=== PATIENT | male | born 1955 | race Caucasian/White ===

== ENCOUNTER 2016-11-14 13:27 | Inpatient (IN) | payer MEDICARE, MEDICAID ==
[~2016-11-14] VITALS: Ht 177.8 cm; Wt 58.7 kg
[2016-11-14] VITALS (10 sets, daily range): BP systolic 139–173; BP diastolic 65–82; PULSE 82–102; RESP 16–25; TEMP 98.8; O2SAT 90–98
[~2016-11-14 13:27] MED LIST: ALPR1 PO; DOCU1CAP39 PO; ECOT81TA2 PO; GABA100C4 PO; OXYC5 PO; PANT40IN3 PO
[2016-11-14] MEDS ORDERED: SODIUM CHLORIDE 0.9% FLUSH 10 ML FLUSH IVF PRN (14:30)
[2016-11-14] MEDS: RESP: ALBUTEROL 2.5 MG/3 ML NEB (SCH) INH ×3 (14:30→17:42)
[2016-11-14] MEDS ORDERED: methylPREDNISolone SOD SUCC 125 MG/2 ML VIAL IVP ONE (14:30)
[2016-11-14 14:52] LABS: BASOPHIL # 0.1 TH/MM3 (0-0.2); BASOPHIL % 0.6 % (0.0-2.0); EOSINOPHIL # 0.3 TH/MM3 (0-0.4); EOSINOPHIL % 2.7 % (0.0-4.0); HEMATOCRIT 39.4 % (39.0-51.0); LYMPHOCYTE # 1.4 TH/MM3 (1.0-4.8); MEAN CELL VOLUME 90.6 FL (80.0-100.0); MEAN CORPUSCULAR HEMOGLOBIN 30.6 PG (27.0-34.0); MEAN CORPUSCULAR HGB CONC 33.8 % (32.0-36.0); MONO % 17.7 % (0.0-8.0); PLATELET COUNT 152 TH/MM3 (150-450); RED BLOOD COUNT 4.35 MIL/MM3 (4.50-5.90); RED CELL DISTRIBUTION WIDTH 13.6 % (11.6-17.2); WHITE BLOOD COUNT 9.3 TH/MM3 (4.0-11.0)
[2016-11-14 15:00] LABS: HEMO FLAGS AUTO DIFF
--- NOTE | 2016-11-14 15:03 | RADRPT ---
EXAM DATE/TIME: 11/14/2016 14:36 [place] COMPARISON: CHEST SINGLE AP, January 04, 2016, 0:56. INDICATIONS : Short of breath for 3-4 days. MEDICAL HISTORY : Chronic obstructive pulmonary disease. Myocardial infarction. Congestive heart failure. Thyroid disea se. CVA. Seizures. Coronary artery disease. Chronic ischemic heart disease. Hypertension. SURGICAL HISTORY : Unobtainable. ENCOUNTER: Initial ACUITY: 4 - 6 days PAIN SCORE: 0/10 LOCATION: Bilateral chest FINDINGS: A single view of the chest demonstrates the lungs to be symmetrically aerated without evidence of mas s, infiltrate or effusion. The cardiomediastinal contours are unremarkable. Osseous structures are intact. CONCLUSION: No acute disease. Cortez Frazier MD FACR on November 14, 2016 at 15:01 Board Certified Radiologist. This report was verified electronically.
[2016-11-14 15:15] LABS: ANION GAP 6 MEQ/L (5-15); BLOOD UREA NITROGEN 5 MG/DL (7-18); CHLORIDE 105 MEQ/L (98-107); GLOMERULAR FILTRATION RATE 99 ML/MIN (>89); SODIUM (NA) 139 MEQ/L (136-145)
[2016-11-14 15:36] LABS: CREATINE KINASE 59 U/L (39-308); POTASSIUM 4.2 MEQ/L (3.5-5.1)
[2016-11-14 15:50] LABS: PLATELET MORPHOLOGY ENLARGED (NORMAL); SCAN/DIFF AUTO DIFF CONFIRMED
--- NOTE | 2016-11-14 16:00 | PD ---
HPI Chief Complaint: Respiratory Symptoms Time Seen by Provider: 15:57 Travel History International Travel<30 days: No Contact w/Intl Traveler<30days: No Traveled to known affect area: No History of Present Illness HPI 60-year-old male that presents to the ED for evaluation of chest pain with cough. Per patient she's had this for about 4 days. Per patient he is living on a house where per patient the lumbar acute care really low. Per patient he believes is related to this. He has a chronic history of psychiatric illness he somewhat of a poor historian. He does have a history of COPD and states that he uses inhalers at home. States that this seems to help somewhat his discomfort. He denies any chest pain or shortness of breath at this moment. He does complain that the symptoms only come with a cough. He states he has not seen anybody for this. He uses no oxygen at home. He denies any fevers chills or sweats. Multiple allergies to medication. He denies any history of heart disease. PFSH Past Medical History Anemia: Yes Anxiety: Yes Depression: Yes (AFTER ) Cardiovascular Problems: Yes Congestive Heart Failure: Yes COPD: Yes Cerebrovascular Accident: Yes (LLE WEAKNESS) Coronary Artery Disease: Yes (CHRONIC ISCHEMIC HEART DISEASE) Diminished Hearing: No Endocrine: Yes Genitourinary: Yes Hypertension: Yes Immune Disorder: No Musculoskeletal: Yes (MUSCLE WEAKNESS) Psychiatric: Yes Reproductive: No Respiratory: Yes Myocardial Infarction: Yes Seizures: Yes Thyroid Disease: No (HYPOTHYROID) Social History Alcohol Use: Yes (LAST TIME 8 MOS.AGO) Tobacco Use: Yes (PK./DAY) Substance Use: No Allergies-Medications (Allergen,Severity, Reaction): Coded Allergies: ampicillin (Unverified Allergy, Severe, 11/13/16) chlorpromazine (Unverified Allergy, Severe, 11/13/16) doxycycline (Unverified Allergy, Severe, 11/13/16) minocycline (Unverified Allergy, Severe, 11/13/16) penicillin G (Unverified Allergy, Severe, 11/13/16) tigecycline (Unverified Allergy, Severe, 11/13/16) Reported Meds & Prescriptions Reported Meds & Active Scripts Active Reported Proair Hfa 8.5 GM Inh (Albuterol Sulfate) 90 Mcg/Act Aer 2 Puff INH QID PRN 108 mcg/actuation Atrovent HFA 12.9 GM Inh (Ipratropium [place]) 17 Mcg/Act Aer 2 Puff INH QID Ferrous Sulfate 325 Mg (65 Mg Iron) Tablet 325 Mg PO DAILY Baclofen 10 Mg Tab 10 Mg PO TID PRN Folic Acid 800 Mcg Tab 1,000 Mcg PO DAILY Diltiazem (Diltiazem HCl) 30 Mg Tab 30 Mg PO DAILY Levothyroxine (Levothyroxine Sodium) 50 Mcg Tab 50 Mcg PO DAILY Risperidone 0.5 Mg Tab 0.5 Mg PO HS Gabapentin 100 Mg Cap 100 Mg PO TID Alprazolam 1 Mg Tab 1 Mg PO TID PRN Tramadol (Tramadol HCl) 50 Mg Tab 50 Mg PO Q4H PRN Pantoprazole (Pantoprazole Sodium) 40 Mg Tab 40 Mg PO DAILY Review of Systems ROS Limitations: Poor Historian Except as stated in HPI: all other systems reviewed are Neg Physical Exam Exam Limitations: Poor Historian Narrative GENERAL: Well-nourished, well-developed patient in no apparent distress. SKIN: Warm and dry. HEAD: Atraumatic. Normocephalic. EYES: Pupils equal and round reactive to light and accommodation. No scleral icterus. No injection or drainage. ENT: No nasal bleeding or discharge. Mucous membranes pink and moist. TMs are clear with no sign of infection or perforation. No mastoid tenderness. Ear canals are intact bilaterally. No lymphadenopathy. Nostril mucosa is red and moist with clear mucus noted. No sinus tenderness to palpation noted. Tonsils are not enlarged or swollen. No ulvua Deviation. Tongue is midline. NECK: Trachea midline. No JVD. No meningeal signs noted CARDIOVASCULAR: Regular rate and rhythm. RESPIRATORY: No accessory muscle use. Wheezings heard in the lower lung wolfe. Breath sounds equal bilaterally. GASTROINTESTINAL: Abdomen soft, non-tender, nondistended. Hepatic and splenic margins not palpable. MUSCULOSKELETAL: Extremities without clubbing, cyanosis, or edema. No obvious deformities. Full range of motion of the upper and lower extremities bilaterally. 2+ pulses bilaterally. NEUROLOGICAL: Awake and alert. No obvious cranial nerve deficits. Motor grossly within normal limits. Five out of 5 muscle strength in the arms and legs. Normal speech. PSYCHIATRIC: Appropriate mood and affect; insight and judgment normal. Data Data Last Documented VS Vital Signs Date Time Temp Pulse Resp B/P Pulse Ox O2 Delivery O2 Flow Rate FiO2 8/16/17 17:42 96 Nasal Cannula 2.00 11/14/16 17:08 85 22 173/76 11/14/16 13:30 98.8 Orders Electrocardiogram (11/14/16 14:22) Basic Metabolic Panel (Bmp) (11/14/16 14:22) Complete Blood Count With Diff (11/14/16 14:22) Chest, Single Ap (11/14/16 14:22) Ecg Monitoring (11/14/16 14:22) Iv Access Insert/Monitor (11/14/16 14:22) Oximetry (11/14/16 14:22) Oxygen Administration (11/14/16 14:22) Methylprednisolone So Succ Inj (Solumedr (11/14/16 14:30) Albuterol Neb (Albuterol Neb) (11/14/16 14:30) Sodium Chloride 0.9% Flush (Ns Flush) (11/14/16 14:30) Troponin I (11/14/16 14:22) Ckmb (Isoenzyme) Profile (11/14/16 14:22) Azithromycin Inj (Zithromax Inj) (11/14/16 16:30) Albuterol Neb (Albuterol Neb) (11/14/16 16:30) Admit Order (Ed Use Only) (11/14/16 18:01) Labs Laboratory Tests Test 11/14/16 14:25 White Blood Count 9.3 TH/MM3 Red Blood Count 4.35 MIL/MM3 Hemoglobin 13.3 GM/DL Hematocrit 39.4 % Mean Corpuscular Volume 90.6 FL Mean Corpuscular Hemoglobin 30.6 PG Mean Corpuscular Hemoglobin 33.8 % Concent Red Cell Distribution Width 13.6 % Platelet Count 152 TH/MM3 Mean Platelet Volume 13.7 FL Neutrophils (%) (Auto) 64.0 % Lymphocytes (%) (Auto) 15.0 % Monocytes (%) (Auto) 17.7 % Eosinophils (%) (Auto) 2.7 % Basophils (%) (Auto) 0.6 % Neutrophils # (Auto) 6.0 TH/MM3 Lymphocytes # (Auto) 1.4 TH/MM3 Monocytes # (Auto) 1.6 TH/MM3 Eosinophils # (Auto) 0.3 TH/MM3 Basophils # (Auto) 0.1 TH/MM3 CBC Comment AUTO DIFF Differential Comment AUTO DIFF CONFIRMED Platelet Morphology Comment ENLARGED Sodium Level 139 MEQ/L Potassium Level 4.2 MEQ/L Chloride Level 105 MEQ/L Carbon Dioxide Level 28.0 MEQ/L Anion Gap 6 MEQ/L Blood Urea Nitrogen 5 MG/DL Creatinine 0.79 MG/DL Estimat Glomerular Filtration 99 ML/MIN Rate Random Glucose 125 MG/DL Calcium Level 9.2 MG/DL Total Creatine Kinase 59 U/L Troponin I LESS THAN 0.02 NG/ML MDM Medical Decision Making Medical Screen Exam Complete: Yes Emergency Medical Condition: Yes Medical Record Reviewed: Yes Interpretation(s) Last Impressions Chest X-Ray 11/14/16 1422 Signed Impressions: Service Date/Time: Monday, November 14, 2016 14:36 - CONCLUSION: No acute disease. Cortez Frazier MD FACR CBC & BMP Diagram 11/14/16 14:25 troponin and CKMB negative EKG shows sinus rhythm with no sign of acute ischemia or arrythmia. Read by me and attending. Differential Diagnosis Chest pain versus a typical chest pain versus COPD exacerbation versus pneumonia versus bronchitis Narrative Course 61-year-old male that presents to the ED for evaluation of chest pain and shortness of breath. Patient was properly examined and was found to have signs and symptoms consistent appears to be likely COPD. Labs and imaging were ordered. Labs and imaging were essentially unremarkable. I do not believe this cardiac as pain is reproducible with cough. He does continue to smoke. Patient's O2 sat is low here. He does not use oxygen at home. Patient was given breathing treatments with some relief but his O2 still low. I had the patient ambulate and he still felt short of breath. At this time I do recommend admission for COPD exacerbation. Case discussed in my attending who agrees with this plan. Patient was admitted to Dr. Parks who agrees to admission. Diagnosis Primary Impression: COPD with exacerbation Admitting Information Admitting Physician Requests: Observation Ernesto Perez Nov 14, 2016 16:00
[2016-11-14] MEDS ORDERED: FERR325T8 PO (16:13)
[2016-11-14] MEDS ORDERED: TRAM50TA PO (16:13)
[2016-11-14] MEDS ORDERED: GABA100C4 PO (16:13)
[2016-11-14] MEDS ORDERED: DILT30TA PO (16:13)
[2016-11-14] MEDS ORDERED: ALBUAER3 INH (16:13)
[2016-11-14] MEDS ORDERED: PANT40TA3 PO (16:13)
[2016-11-14] MEDS ORDERED: IPRA17I INH (16:13)
[2016-11-14] MEDS ORDERED: LEVO50TA4 PO (16:13)
[2016-11-14] MEDS ORDERED: FOLI800T PO (16:13)
[2016-11-14] MEDS ORDERED: BACL10TA PO (16:13)
[2016-11-14] MEDS ORDERED: RISP0.5T2 PO (16:13)
[2016-11-14] MEDS ORDERED: ALPR1TAB3 PO (16:13)
[2016-11-14] MEDS ORDERED: AZITHROMYCIN INJ 500 MG in SODIUM CHLOR 0.9% 250 ML INJ 250 ML IV ONE (16:30)
[2016-11-14] MEDS ORDERED: SODIUM CHLORIDE 0.9% FLUSH 10 ML FLUSH IV FLUSH PRN ×2 (19:30)
[2016-11-14] MEDS ORDERED: ONDANSETRON HCL 4 MG/2 ML VIAL IVP PRN (19:30)
[2016-11-14] MEDS ORDERED: RESP: ALBUTEROL 2.5 MG/3 ML NEB (PRN) INH (19:30)
[2016-11-14] MEDS ORDERED: DEXTROSE 50% IN WATER 50 ML VIAL(D50) IV PRN (19:30)
[2016-11-14] MEDS ORDERED: SENNOSIDES 8.6 MG TAB PO PRN (19:30)
[2016-11-14] MEDS ORDERED: MAGNESIUM HYDROXIDE SUSP 30 ML CUP PO PRN (19:30)
[2016-11-14] MEDS ORDERED: BISACODYL 10 MG SUPP RECTAL PRN (19:30)
[2016-11-14] MEDS ORDERED: GLUCAGON 1 MG/ML VIAL OTHER PRN (19:30)
[2016-11-14] MEDS ORDERED: ALBUTEROL SULFATE 90 MCG/ACT HFA 8 GM INHALER INH PRN (19:30)
[2016-11-14] MEDS ORDERED: ACETAMINOPHEN 325 MG TAB PO PRN ×2 (19:30)
[2016-11-14] MEDS ORDERED: LACTULOSE SYRUP 20 GM/30 ML CUP PO PRN (19:30)
[2016-11-14] MEDS ORDERED: MORPHINE SULFATE 4 MG/ML INJ IV PRN ×2 (19:30)
[2016-11-14] MEDS ORDERED: PROCHLORPERAZINE 25 MG SUPP PR PRN (19:30)
[2016-11-14] MEDS ORDERED: NALOXONE HCL 0.4 MG/ML AMP IV PRN (19:30)
[2016-11-14] MEDS: RESP: ALBUTEROL 2.5 MG/IPRATROPIUM 0.5 MG NEB (SCH) INH ×2 (20:00→23:04)
[2016-11-14] MEDS: DOCUSATE SODIUM 50 MG/SENNA 8.6 MG TAB PO SCH (20:27)
[2016-11-14] MEDS: methylPREDNISolone SOD SUCC 125 MG/2 ML VIAL IVP SCH (20:27)
[2016-11-14] MEDS: ENOXAPARIN SODIUM 40 MG/0.4 ML SYRINGE SQ SCH (20:28)
[2016-11-14] MEDS: INSULIN ASPART SUPPLEMENTAL SCALE SQ SCH (20:28)
[2016-11-14] MEDS: SODIUM CHLORIDE 0.9% FLUSH 10 ML FLUSH IV FLUSH SCH (20:48)
[2016-11-14] MEDS ORDERED: SODIUM CHLORIDE 0.9% FLUSH 10 ML FLUSH IV FLUSH SCH (21:00)
[2016-11-14] MEDS ORDERED: IPRATROPIUM BROMIDE 17 MCG/ACT 12.9 GM INHALER INH SCH (21:00)
[2016-11-14] MEDS ORDERED: BUDESONIDE-FORMOTEROL 160/4.5 MCG INHALER INH SCH (21:00)
--- NOTE | 2016-11-14 21:15 | HHI.HP ---
[facility] Indira Costello MD Admission Diagnosis COPD exacerbation Diagnoses: Chief Complaint: dyspnea Travel History International Travel<30 Days: No Contact w/Intl Traveler <30 Da: No Traveled to Known Affected Are: No History of Present Illness Written by OLIVIA Gonsalves acting as scribe for [Karen] on 11/14/16 at 20: 50. 61 y/o male with a history of COPD, HTN, CVA with left sided weakness, Anemia, anxiety, depression, CAD and hypothyroid presented to the ED with complaints of dyspnea and cough. He states he has had this cough for the last 4 days and has been short of breath with it, and is worse in the morning. Patient states he did have a fever but does not know how high. He does have a productive cough with yellow brown sputum. He denies any associated chest pain, nausea, vomiting , diarrhea, dysuria or headaches. He does continue to smoke but does want to quit. Review of Systems Except as stated in HPI: all other systems reviewed are Neg Past Family Social History Past Medical History COPD HTN CVA with left sided weakness Anemia anxiety depression CAD hypothyroid Past Surgical History Right femur repair Left hip repair Reported Medications Reported Meds & Active Scripts Active Reported Proair Hfa 8.5 GM Inh (Albuterol Sulfate) 90 Mcg/Act Aer 2 Puff INH QID PRN 108 mcg/actuation Atrovent HFA 12.9 GM Inh (Ipratropium [place]) 17 Mcg/Act Aer 2 Puff INH QID Ferrous Sulfate 325 Mg (65 Mg Iron) Tablet 325 Mg PO DAILY Baclofen 10 Mg Tab 10 Mg PO TID PRN Folic Acid 800 Mcg Tab 1,000 Mcg PO DAILY Diltiazem (Diltiazem HCl) 30 Mg Tab 30 Mg PO DAILY Levothyroxine (Levothyroxine Sodium) 50 Mcg Tab 50 Mcg PO DAILY Risperidone 0.5 Mg Tab 0.5 Mg PO HS Gabapentin 100 Mg Cap 100 Mg PO TID Alprazolam 1 Mg Tab 1 Mg PO TID PRN Tramadol (Tramadol HCl) 50 Mg Tab 50 Mg PO Q4H PRN Pantoprazole (Pantoprazole Sodium) 40 Mg Tab 40 Mg PO DAILY Allergies: Coded Allergies: ampicillin (Unverified Allergy, Severe, 11/13/16) chlorpromazine (Unverified Allergy, Severe, 11/13/16) doxycycline (Unverified Allergy, Severe, 11/13/16) minocycline (Unverified Allergy, Severe, 11/13/16) penicillin G (Unverified Allergy, Severe, 11/13/16) tigecycline (Unverified Allergy, Severe, 11/13/16) Active Ordered Medications Current Medications Medications (Trade) Dose Ordered Sig/Mariana Route Start Time Stop Time Status Last Admin (D50w (Vial) Inj) 50 ml UNSCH PRN IV 11/14/16 19:30 (Glucagon Inj) 1 mg UNSCH PRN OTHER 11/14/16 19:30 (Xanax) 1 mg TID PRN PO 11/14/16 19:30 (Lioresal) 10 mg TID PRN PO 11/14/16 19:30 (Cardizem) 30 mg DAILY PO 11/15/16 09:00 (Ferrous Sulfate) 325 mg DAILY PO 11/15/16 09:00 (Folate) 1 mg DAILY PO 11/15/16 09:00 (Neurontin) 100 mg TID PO 11/15/16 09:00 (Synthroid) 50 mcg DAILY@06 PO 11/15/16 06:00 (Protonix) 40 mg DAILY PO 11/15/16 09:00 (risperDAL) 0.5 mg HS PO 11/14/16 21:00 (Ultram) 50 mg Q4H PRN PO 11/14/16 19:30 (Tylenol) 650 mg Q4H PRN PO 11/14/16 19:30 (Zofran Inj) 4 mg Q6H PRN IVP 11/14/16 19:30 (Lovenox Inj) 40 mg Q24H SQ 11/14/16 21:00 (Tylenol) 650 mg Q6H PRN PO 11/14/16 19:30 (Morphine Inj) 2 mg Q3H PRN IV 11/14/16 19:30 (Morphine Inj) 4 mg Q3H PRN IV 11/14/16 19:30 (Narcan Inj) 0.4 mg UNSCH PRN IV 11/14/16 19:30 (Elysia-Colace) 1 tab BID PO 11/14/16 21:00 11/14/16 20:27 (Milk Of Magnesia Liq) 30 ml Q12H PRN PO 11/14/16 19:30 (Senokot) 17.2 mg Q12H PRN PO 11/14/16 19:30 (Dulcolax Supp) 10 mg DAILY PRN RECTAL 11/14/16 19:30 (Lactulose Liq) 30 ml DAILY PRN PO 11/14/16 19:30 (NS Flush) 2 ml BID IV FLUSH 11/14/16 21:00 11/14/16 20:48 (NS Flush) 2 ml UNSCH PRN IV FLUSH 11/14/16 19:30 Methylprednisolone Sodium Succinate 60 mg 60 mg Q6H IVP 11/14/16 20:00 11/14/16 20:27 (Rocephin Inj/NS Inj) 100 ml @ 200 mls/hr Q24H IV 11/15/16 20:00 Nicotine 1 patch 1 patch DAILY TD 11/15/16 09:00 (Zithromax Inj/ NS 250 ml Inj) 250 ml @ 250 mls/hr Q24H IV 11/15/16 17:00 Family History Mom: CVA, PVD Social History Tobacco use: 1/2 PPD Alcohol use: Quit 11 years ago Illicit drug use: Denies Patient lives alone and does have a father who lives in town. Physical Exam Vital Signs Vital Signs Date Time Temp Pulse Resp B/P Pulse Ox O2 Delivery O2 Flow Rate FiO2 11/14/16 19:56 95 Nasal Cannula 2.00 11/14/16 19:28 100 20 141/65 96 Nasal Cannula 2 11/14/16 18:11 94 22 139/66 98 Nasal Cannula 2 11/14/16 17:42 96 Nasal Cannula 2.00 11/14/16 17:08 97 Nasal Cannula 2 11/14/16 17:08 85 22 173/76 90 Room Air 11/14/16 16:19 25 93 Room Air 11/14/16 16:03 95 Room Air 11/14/16 16:03 82 18 95 Room Air 11/14/16 16:03 82 22 143/65 94 Room Air 11/14/16 16:03 95 Room Air 11/14/16 13:30 98.8 84 16 140/82 92 Physical Exam GENERAL: This is a well-nourished, well-developed patient, in no apparent distress. SKIN: No rashes, ecchymoses or lesions. Cool and dry. HEAD: Atraumatic. Normocephalic. EYES: Pupils equal round and reactive. ENT: Nose without bleeding, purulent drainage or septal hematoma. Airway patent. NECK: Trachea midline. No JVD or lymphadenopathy. Supple, nontender, no meningeal signs. CARDIOVASCULAR: Regular rate and rhythm without murmurs, gallops, or rubs. RESPIRATORY: Clear to auscultation. Breath sounds equal bilaterally. No wheezes , rales, or rhonchi. GASTROINTESTINAL: Abdomen soft, non-tender, nondistended. No hepato-splenomegaly , or palpable masses. No guarding. MUSCULOSKELETAL: Extremities without clubbing, cyanosis, or edema. No joint tenderness, effusion, or edema noted. No calf tenderness. NEUROLOGICAL: Awake and alert. Motor and sensory grossly within normal limits. Left sided weakness. Normal speech. Laboratory Laboratory Tests Test 11/14/16 14:25 White Blood Count 9.3 Red Blood Count 4.35 Hemoglobin 13.3 Hematocrit 39.4 Mean Corpuscular Volume 90.6 Mean Corpuscular Hemoglobin 30.6 Mean Corpuscular Hemoglobin 33.8 Concent Red Cell Distribution Width 13.6 Platelet Count 152 Mean Platelet Volume 13.7 Neutrophils (%) (Auto) 64.0 Lymphocytes (%) (Auto) 15.0 Monocytes (%) (Auto) 17.7 Eosinophils (%) (Auto) 2.7 Basophils (%) (Auto) 0.6 Neutrophils # (Auto) 6.0 Lymphocytes # (Auto) 1.4 Monocytes # (Auto) 1.6 Eosinophils # (Auto) 0.3 Basophils # (Auto) 0.1 CBC Comment AUTO DIFF Differential Comment AUTO DIFF CONFIRMED Platelet Morphology Comment ENLARGED Sodium Level 139 Potassium Level 4.2 Chloride Level 105 Carbon Dioxide Level 28.0 Anion Gap 6 Blood Urea Nitrogen 5 Creatinine 0.79 Estimat Glomerular Filtration 99 Rate Random Glucose 125 Calcium Level 9.2 Total Creatine Kinase 59 Troponin I LESS THAN 0.02 Result Diagram: 11/14/16 1425 11/14/16 1425 Imaging Last Impressions Chest X-Ray 11/14/16 1422 Signed Impressions: Service Date/Time: Monday, November 14, 2016 14:36 - CONCLUSION: No acute disease. Cortez Fraizer MD FACR Assessment and Plan Problem List: (1) COPD with exacerbation ICD Code: J44.1 Status: Acute Assessment and Plan 61 y/o male with a history of COPD, HTN, CVA with left sided weakness, Anemia, anxiety, depression, CAD and hypothyroid presented to the ED with complaints of dyspnea and cough for the last few days. COPD exacerbation, patient is not on O2 at home Chest x ray reviewed and is unremarkable -Solumedrol IV -Duonebs scheduled and prn -Levaquin IV Daily- possible early pneumonia in copd pt, with xray lagging behind -Morphine IV for pain management -Sputum culture ordered Other chronic medical conditions anemia, hypothyroid, and anxiety appear stable : Reorder home medications DVT prophylaxis: Lovenox, SCDs This note was transcribed by scribe [Della Chavez]. I, Dr. Triny Jones personally performed the history, physical exam, and medical decision making; and confirmed the accuracy of the information in the transcribed note. Authenticated by Dr. Triny Jones on 11/14/16 at 20:50. Discussed Condition With Patient and RN Della Chavez Nov 14, 2016 21:15 Triny Jones MD Nov 15, 2016 10:26
[2016-11-14] MEDS: risperiDONE 0.5 MG TAB PO SCH (22:40)
[2016-11-14] MEDS: LEVOFLOXACIN 750 MG PREMIX INJ 150 ML IV SCH (22:41)
[2016-11-15] VITALS (11 sets, daily range): BP systolic 113–146; BP diastolic 54–65; PULSE 88–114; RESP 18–20; TEMP 98–99.6; O2SAT 86–97
[2016-11-15] MEDS: RESP: ALBUTEROL 2.5 MG/IPRATROPIUM 0.5 MG NEB (SCH) INH ×6 (02:49→23:06)
[2016-11-15] MEDS: methylPREDNISolone SOD SUCC 125 MG/2 ML VIAL IVP SCH ×4 (03:40→21:57)
[2016-11-15] MEDS: LEVOTHYROXINE SODIUM 50 MCG TAB PO SCH (06:21)
[2016-11-15] MEDS: INSULIN ASPART SUPPLEMENTAL SCALE SQ SCH ×5 (06:25→22:18)
[2016-11-15 07:06] LABS: AUTOMATED NEUTROPHIL # 8.9 TH/MM3 (1.8-7.7); BASOPHIL % 0.2 % (0.0-2.0); EOSINOPHIL % 0.1 % (0.0-4.0); HEMATOCRIT 37.4 % (39.0-51.0); LYMPH % 9.7 % (9.0-44.0); MEAN CELL VOLUME 92.4 FL (80.0-100.0); MEAN CORPUSCULAR HEMOGLOBIN 30.3 PG (27.0-34.0); MEAN CORPUSCULAR HGB CONC 32.8 % (32.0-36.0); MONO % 3.5 % (0.0-8.0); NEUT % 86.5 % (16.0-70.0); PLATELET COUNT 161 TH/MM3 (150-450); RED BLOOD COUNT 4.05 MIL/MM3 (4.50-5.90); RED CELL DISTRIBUTION WIDTH 13.8 % (11.6-17.2); WHITE BLOOD COUNT 10.3 TH/MM3 (4.0-11.0)
[2016-11-15 07:08] LABS: HEMO FLAGS AUTO DIFF
[2016-11-15 07:17] LABS: ANION GAP 8 MEQ/L (5-15); AST (GOT) 21 U/L (15-37); BICARBONATE 25.9 MEQ/L (21.0-32.0); BLOOD UREA NITROGEN 7 MG/DL (7-18); CHLORIDE 105 MEQ/L (98-107); GLOMERULAR FILTRATION RATE 114 ML/MIN (>89); POTASSIUM 3.5 MEQ/L (3.5-5.1); SODIUM (NA) 139 MEQ/L (136-145)
[2016-11-15 07:26] LABS: ALKALINE PHOSPHATASE 80 U/L (45-117); ALT (GPT) 17 U/L (12-78); FREE T4 1.72 NG/DL (0.76-1.46); TOTAL BILIRUBIN ADULT 0.4 MG/DL (0.2-1.0)
[2016-11-15 08:39] LABS: PLATELET ESTIMATE SMEAR NORMAL (NORMAL); PLATELET MORPHOLOGY ENLARGED (NORMAL); SCAN/DIFF AUTO DIFF CONFIRMED
[2016-11-15] MEDS: DOCUSATE SODIUM 50 MG/SENNA 8.6 MG TAB PO SCH ×2 (09:00→21:00)
[2016-11-15] MEDS: FERROUS SULFATE 325 MG (65 MG ELEMENTAL IRON) TAB PO SCH (09:09)
[2016-11-15] MEDS: GABAPENTIN 100 MG CAP PO SCH ×3 (09:09→18:11)
[2016-11-15] MEDS: DILTIAZEM HCL 30 MG TAB PO SCH (09:10)
[2016-11-15] MEDS: traMADol HCL 50 MG TAB PO PRN (09:10)
[2016-11-15] MEDS: FOLIC ACID 1 MG TAB PO SCH (09:10)
[2016-11-15] MEDS: ALPRAZolam 1 MG TAB PO PRN ×3 (09:11→22:43)
[2016-11-15] MEDS: PANTOPRAZOLE SOD 40 MG DELAYED RELEASE TAB PO SCH (09:11)
[2016-11-15] MEDS: SODIUM CHLORIDE 0.9% FLUSH 10 ML FLUSH IV FLUSH SCH ×2 (09:12→21:57)
[2016-11-15] MEDS: NICOTINE 21 MG/24 HR PATCH TD SCH (09:15)
--- NOTE | 2016-11-15 09:19 | EKG ---
Date Performed: 11/14/2016 Time Performed: 13:55:31 PTAGE: 61 years EKG: Sinus rhythm MINIMAL ST DEPRESSION BORDERLINE ECG PREVIOUS TRACING : 01/04/2016 02.24 Compared to prior tracing no significant change DOCTOR: Pool Olmos Interpretating Date/Time 11/15/2016 09:07:35
--- NOTE | 2016-11-15 12:45 | HHI.PR ---
Subjective Remarks 61 y/o male with a history of COPD, HTN, CVA with left sided weakness, Anemia, anxiety, depression, CAD and hypothyroid presented to the ED with complaints of dyspnea and cough. He states he has had this cough for the last 4 days and has been short of breath with it, and is worse in the morning. Patient states he did have a fever but does not know how high. He does have a productive cough with yellow brown sputum. He denies any associated chest pain, nausea, vomiting , diarrhea, dysuria or headaches. He does continue to smoke but does want to quit. 11-15 he remains very short of breath needing oxygen. Patient is very congested coughing up not able to do much activity without becoming short of breath. Will not be ready for discharge in the next day to be made a full admission. May need to go to a [facility] facility at discharge. At this time is requiring oxygen and if things don't improve he will need oxygen at home Needs to use the incentive spirometry. Wants to quit smoking. Wants treatment VERY anxious States he sometimes has diarrhea we'll place on Lactinex Objective Vitals Vital Signs Date Time Temp Pulse Resp B/P Pulse Ox O2 Delivery O2 Flow Rate FiO2 11/15/16 12:00 99.6 111 20 113/58 97 11/15/16 08:00 98.6 114 20 143/61 86 11/15/16 07:29 99 11/15/16 04:53 90 11/15/16 04:45 98.4 96 18 146/65 96 11/15/16 00:17 98.4 102 18 117/54 96 11/14/16 23:49 102 11/14/16 23:05 95 11/14/16 19:56 95 Nasal Cannula 2.00 11/14/16 19:28 100 20 141/65 96 Nasal Cannula 2 11/14/16 18:11 94 22 139/66 98 Nasal Cannula 2 11/14/16 17:42 96 Nasal Cannula 2.00 11/14/16 17:08 97 Nasal Cannula 2 11/14/16 17:08 85 22 173/76 90 Room Air 11/14/16 16:19 25 93 Room Air 11/14/16 16:03 95 Room Air 11/14/16 16:03 82 18 95 Room Air 11/14/16 16:03 82 22 143/65 94 Room Air 11/14/16 16:03 95 Room Air 11/14/16 13:30 98.8 84 16 140/82 92 I/O 11/14/16 11/14/16 11/14/16 11/15/16 11/15/16 11/15/16 07:00 15:00 23:00 07:00 15:00 23:00 Intake Total 250 ml Output Total 1 ml Balance 249 ml Intake Oral 250 ml Output Stool Total 1 ml # Voids 3 # Bowel Movements 1 Result Diagram: 11/15/16 0629 11/15/16 0629 Other Results Laboratory Tests Test 11/14/16 11/15/16 14:25 06:29 White Blood Count 9.3 TH/MM3 10.3 TH/MM3 Red Blood Count 4.35 MIL/MM3 4.05 MIL/MM3 Hemoglobin 13.3 GM/DL 12.3 GM/DL Hematocrit 39.4 % 37.4 % Mean Corpuscular Volume 90.6 FL 92.4 FL Mean Corpuscular Hemoglobin 30.6 PG 30.3 PG Mean Corpuscular Hemoglobin 33.8 % 32.8 % Concent Red Cell Distribution Width 13.6 % 13.8 % Platelet Count 152 TH/MM3 161 TH/MM3 Mean Platelet Volume 13.7 FL 12.9 FL Neutrophils (%) (Auto) 64.0 % 86.5 % Lymphocytes (%) (Auto) 15.0 % 9.7 % Monocytes (%) (Auto) 17.7 % 3.5 % Eosinophils (%) (Auto) 2.7 % 0.1 % Basophils (%) (Auto) 0.6 % 0.2 % Neutrophils # (Auto) 6.0 TH/MM3 8.9 TH/MM3 Lymphocytes # (Auto) 1.4 TH/MM3 1.0 TH/MM3 Monocytes # (Auto) 1.6 TH/MM3 0.4 TH/MM3 Eosinophils # (Auto) 0.3 TH/MM3 0.0 TH/MM3 Basophils # (Auto) 0.1 TH/MM3 0.0 TH/MM3 CBC Comment AUTO DIFF AUTO DIFF Differential Comment AUTO DIFF AUTO DIFF CONFIRMED CONFIRMED Platelet Morphology Comment ENLARGED ENLARGED Sodium Level 139 MEQ/L 139 MEQ/L Potassium Level 4.2 MEQ/L 3.5 MEQ/L Chloride Level 105 MEQ/L 105 MEQ/L Carbon Dioxide Level 28.0 MEQ/L 25.9 MEQ/L Anion Gap 6 MEQ/L 8 MEQ/L Blood Urea Nitrogen 5 MG/DL 7 MG/DL Creatinine 0.79 MG/DL 0.70 MG/DL Estimat Glomerular Filtration 99 ML/MIN 114 ML/MIN Rate Random Glucose 125 MG/DL 155 MG/DL Calcium Level 9.2 MG/DL 8.9 MG/DL Total Creatine Kinase 59 U/L Troponin I LESS THAN 0.02 NG/ML Platelet Estimate NORMAL Phosphorus Level 2.5 MG/DL Magnesium Level 2.0 MG/DL Total Bilirubin 0.4 MG/DL Aspartate Amino Transf 21 U/L (AST/SGOT) Alanine Aminotransferase 17 U/L (ALT/SGPT) Alkaline Phosphatase 80 U/L Total Protein 7.1 GM/DL Albumin 3.5 GM/DL Free Thyroxine 1.72 NG/DL Thyroid Stimulating Hormone 0.360 uIU/ML 3rd Gen Imaging Last Impressions Chest X-Ray 11/14/16 1422 Signed Impressions: Service Date/Time: Monday, November 14, 2016 14:36 - CONCLUSION: No acute disease. Cortez Frazier MD FACR Objective Remarks GENERAL: This is a well-nourished, well-developed patient, in no apparent distress. Has chronic left-sided weakness with chronic left-sided facial droop SKIN: No rashes, ecchymoses or lesions. Cool and dry. HEAD: Atraumatic. Normocephalic. EYES: Pupils equal round and reactive. Extraocular muscles appear grossly intact ENT: Nose without bleeding, purulent drainage or septal hematoma. Airway patent. Tongue midline NECK: Trachea midline. No JVD or lymphadenopathy. Supple, nontender, no meningeal signs. CARDIOVASCULAR: Regular rate and rhythm without murmurs, gallops, or rubs. S1 and S2 no S3 or S4 no heave or thrill or rub or gallop RESPIRATORY: Coarse breath sounds bilaterally Breath sounds equal bilaterally. Rhonchi and wheezes throughout bilaterally GASTROINTESTINAL: Abdomen soft, non-tender, nondistended. No hepato-splenomegaly , or palpable masses. No guarding. MUSCULOSKELETAL: Extremities without clubbing, cyanosis, or edema. No joint tenderness, effusion, or edema noted. No calf tenderness. Motor strength 4.5 out of 5 on the right and 3.5-4 out of 5 on the left NEUROLOGICAL: Awake and alert. Motor and sensory grossly within normal limits. Left sided weakness. Normal speech. Insight and judgment are fair mood and behavior is somewhat appropriate Medications and IVs Current Medications Methylprednisolone Sodium Succinate (SoluMEDROL INJ) 125 mg ONCE ONCE IVP Last administered on 11/14/16 14:50; Start 11/14/16 at 14:30; Stop 11/14/16 at 14:33; Status DC Albuterol Sulfate (Albuterol Neb) 2.5 mg Q15M INH Last administered on 14:42; Start 11/14/16 at 14:30; Stop 11/14/16 at 14:46; Status DC Sodium Chloride 2 ml 2 ml UNSCH PRN IVF FLUSH AFTER USING IV ACCESS; Start at 14:30; Stop 11/14/16 at 19:33; Status DC Azithromycin/ Sodium Chloride (Zithromax Inj/ NS 250 ml Inj) 250 ml @ 250 mls/ hr ONCE ONCE IV Last administered on 11/14/16 17:04; Start 11/14/16 at 16:30 ; Stop 11/14/16 at 17:29; Status DC Albuterol Sulfate (Albuterol Neb) 2.5 mg Q15M INH Last administered on 17:42; Start 11/14/16 at 16:30; Stop 11/14/16 at 16:46; Status DC Dextrose (D50w (Vial) Inj) 50 ml UNSCH PRN IV HYPOGLYCEMIA-SEE COMMENTS; Start 11/14/16 at 19:30 Glucagon (Glucagon Inj) 1 mg UNSCH PRN OTHER HYPOGLYCEMIA-SEE COMMENTS; Start 11/14/16 at 19:30 Insulin Aspart (NovoLOG SUPPLEMENTAL SCALE) 1 ACHS SLIDING SCALE SQ ; Start at 21:00 Albuterol Sulfate (Proair Hfa Inh) 2 puff QID PRN INH SHORTNESS OF BREATH; Start 11/14/16 at 19:30; Stop 11/14/16 at 19:38; Status DC Alprazolam (Xanax) 1 mg TID PRN PO ANXIETY Last administered on 11/15/16 09:11 ; Start 11/14/16 at 19:30 Baclofen (Lioresal) 10 mg TID PRN PO MUSCLE SPASM; Start 11/14/16 at 19:30 Diltiazem HCl (Cardizem) 30 mg DAILY PO Last administered on 11/15/16 09:10; Start 11/15/16 at 09:00 Ferrous Sulfate (Ferrous Sulfate) 325 mg DAILY PO Last administered on 09:09; Start 11/15/16 at 09:00 Folic Acid (Folate) 1 mg DAILY PO Last administered on 11/15/16 09:10; Start 11/15/16 at 09:00 Gabapentin (Neurontin) 100 mg TID PO Last administered on 11/15/16 09:09; Start 11/15/16 at 09:00 Ipratropium [place] (Atrovent Hfa Inh) 2 puff QID INH ; Start 11/14/16 at 21:00 ; Stop 11/14/16 at 21:00; Status DC Levothyroxine Sodium (Synthroid) 50 mcg DAILY@06 PO Last administered on 06:21; Start 11/15/16 at 06:00 Pantoprazole Sodium (Protonix) 40 mg DAILY PO Last administered on 11/15/16 09 :11; Start 11/15/16 at 09:00 Risperidone (risperDAL) 0.5 mg HS PO Last administered on 11/14/16 22:40; Start 11/14/16 at 21:00 Tramadol HCl (Ultram) 50 mg Q4H PRN PO PAIN 3-5 Last administered on 11/15/16 09:10; Start 11/14/16 at 19:30 Sodium Chloride (NS Flush) 2 ml UNSCH PRN IV FLUSH FLUSH AFTER USING IV ACCESS ; Start 11/14/16 at 19:30; Stop 11/14/16 at 19:30; Status DC Sodium Chloride (NS Flush) 2 ml BID IV FLUSH ; Start 11/14/16 at 21:00; Stop at 21:00; Status DC Acetaminophen (Tylenol) 650 mg Q4H PRN PO TEMP > 100.4; Start 11/14/16 at 19:30 Ondansetron HCl (Zofran Inj) 4 mg Q6H PRN IVP NAUSEA OR VOMITING; Start at 19:30 Prochlorperazine (Compazine Supp) 25 mg Q12H PRN VA NAUSEA OR VOMITING; Start 11/14/16 at 19:30; Stop 11/14/16 at 19:40; Status DC Enoxaparin Sodium (Lovenox Inj) 40 mg Q24H SQ ; Start 11/14/16 at 21:00 Acetaminophen (Tylenol) 650 mg Q6H PRN PO PAIN SCALE 1 TO 2; Start 11/14/16 at 19:30 Morphine Sulfate (Morphine Inj) 2 mg Q3H PRN IV Pain 3-5; if unable to take PO ; Start 11/14/16 at 19:30 Morphine Sulfate (Morphine Inj) 4 mg Q3H PRN IV Pain 6-10;if unable to take PO ; Start 11/14/16 at 19:30 Naloxone HCl (Narcan Inj) 0.4 mg UNSCH PRN IV SEE LABEL COMMENTS; Start at 19:30 Senna/Docusate Sodium (Elysia-Colace) 1 tab BID PO Last administered on 20:27; Start 11/14/16 at 21:00 Magnesium Hydroxide (Milk Of Magnesia Liq) 30 ml Q12H PRN PO MILD - MODERATE CONSTIPATION; Start 11/14/16 at 19:30 Sennosides (Senokot) 17.2 mg Q12H PRN PO MODERATE - SEVERE CONSTIPATION; Start 11/14/16 at 19:30 Bisacodyl (Dulcolax Supp) 10 mg DAILY PRN RECTAL SEVERE CONSITIPATION; Start at 19:30 Lactulose (Lactulose Liq) 30 ml DAILY PRN PO SEVERE CONSITIPATION; Start at 19:30 Sodium Chloride (NS Flush) 2 ml BID IV FLUSH Last administered on 11/15/16 09: 12; Start 11/14/16 at 21:00 Sodium Chloride (NS Flush) 2 ml UNSCH PRN IV FLUSH FLUSH AFTER USING IV ACCESS ; Start 11/14/16 at 19:30 Albuterol/ Ipratropium (Duoneb Neb) 1 ampule Q4HR NEB INH Last administered on 11/15/16 11:12; Start 11/14/16 at 20:00 Albuterol Sulfate (Albuterol Neb) 2.5 mg Q2HR NEB PRN INH SHORTNESS OF BREATH; Start 11/14/16 at 19:30 Budesonide/ Formoterol Fumarate (Symbicort 160-4.5 Inh) 2 puff Q12HR INH ; Start 11/14/16 at 21:00; Stop 11/14/16 at 21:00; Status DC Methylprednisolone Sodium Succinate 60 mg 60 mg Q6H IVP Last administered on 09:09; Start 11/14/16 at 20:00 Ceftriaxone Sodium/Sodium Chloride (Rocephin Inj/NS Inj) 100 ml @ 200 mls/hr Q24H IV ; Start 11/15/16 at 20:00; Stop 11/15/16 at 20:00; Status DC Nicotine 1 patch 1 patch DAILY TD ; Start 11/15/16 at 09:00 Azithromycin 500 mg/Sodium Chloride 250 ml @ 250 mls/hr Q24H IV ; Start at 17:00; Stop 11/15/16 at 17:00; Status DC Levofloxacin/ Dextrose (Levaquin 750 Mg Premix Inj) 150 ml @ 100 mls/hr Q24H IV Last administered on 11/14/16 22:41; Start 11/14/16 at 22:00 Urinary Catheter: No Vascular Central Line Catheter: No A/P Problem List: (1) COPD with exacerbation ICD Code: J44.1 Status: Acute (2) Left leg weakness ICD Code: M62.81 Status: Acute (3) Left leg pain ICD Code: M79.605 Status: Acute (4) Hypoxia ICD Code: R09.02 Status: Acute (5) Tobacco abuse ICD Code: Z72.0 Status: Acute (6) Respiratory failure ICD Code: J96.90 Status: Acute Assessment and Plan 61 y/o male with a history of COPD, HTN, CVA with left sided weakness, Anemia, anxiety, depression, CAD and hypothyroid presented to the ED with complaints of dyspnea and cough for the last few days. COPD exacerbation, patient is not on O2 at home Chest x ray reviewed and is unremarkable -Solumedrol IV -Duonebs scheduled and prn -Levaquin IV Daily- possible early pneumonia in copd pt, with xray lagging behind -Morphine IV for pain management -Sputum culture ordered MUCINEX IS Other chronic medical conditions anemia, hypothyroid HOME MEDS, and anxiety HOME MEDS TOBACCO ABUSE SMOKING CESSATION DVT prophylaxis: Lovenox, SCDs NEEDS FULL ADMIT WILL NOT IMPROVE FAST ENOUGH Cortez Parks DO Nov 15, 2016 12:45
[2016-11-15] MEDS: guaiFENesin E.R. 600 MG TAB PO SCH ×2 (13:18→21:58)
[2016-11-15] MEDS: LACTOBACILLUS ACIDOPHILUS TAB PO SCH ×2 (14:14→18:11)
[2016-11-15 16:03] LABS: HEMOGLOBIN A1a 1.2 %; HEMOGLOBIN Ao 84.3 %; HEMOGLOBIN LA1C 2.4 %; HEMOGLOBIN P3 3.8 %
[2016-11-15] MEDS ORDERED: AZITHROMYCIN INJ 500 MG in SODIUM CHLOR 0.9% 250 ML INJ 250 ML IV SCH (17:00)
[2016-11-15] MEDS ORDERED: cefTRIAXone INJ 1,000 MG in SODIUM CHLORIDE 0.9% INJ 100 ML IV SCH (20:00)
[2016-11-15] MEDS: ENOXAPARIN SODIUM 40 MG/0.4 ML SYRINGE SQ SCH (21:57)
[2016-11-15] MEDS: LEVOFLOXACIN 750 MG PREMIX INJ 150 ML IV SCH (21:57)
[2016-11-15] MEDS: risperiDONE 0.5 MG TAB PO SCH (21:58)
[2016-11-16] VITALS (11 sets, daily range): BP systolic 121–170; BP diastolic 58–75; PULSE 86–114; RESP 18–22; TEMP 97.5–98.3; O2SAT 92–95
[2016-11-16] MEDS: methylPREDNISolone SOD SUCC 125 MG/2 ML VIAL IVP SCH ×4 (02:21→20:56)
[2016-11-16] MEDS: RESP: ALBUTEROL 2.5 MG/IPRATROPIUM 0.5 MG NEB (SCH) INH ×6 (03:05→23:47)
[2016-11-16] MEDS: ALPRAZolam 1 MG TAB PO PRN ×3 (04:21→21:06)
[2016-11-16] MEDS: traMADol HCL 50 MG TAB PO PRN (04:21)
[2016-11-16] MEDS: INSULIN ASPART SUPPLEMENTAL SCALE SQ SCH ×4 (06:44→21:07)
[2016-11-16] MEDS: LEVOTHYROXINE SODIUM 50 MCG TAB PO SCH (06:44)
[2016-11-16] MEDS ORDERED: MAGNESIUM HYDROXIDE SUSP 30 ML CUP PO PRN (08:00)
[2016-11-16] MEDS ORDERED: ZOLPIDEM TARTRATE 5 MG TAB PO PRN (08:00)
[2016-11-16] MEDS ORDERED: BISACODYL 10 MG SUPP RECTAL PRN (08:00)
--- NOTE | 2016-11-16 08:04 | HHI.PR ---
Subjective Remarks 61 y/o male with a history of COPD, HTN, CVA with left sided weakness, Anemia, anxiety, depression, CAD and hypothyroid presented to the ED with complaints of dyspnea and cough. He states he has had this cough for the last 4 days and has been short of breath with it, and is worse in the morning. Patient states he did have a fever but does not know how high. He does have a productive cough with yellow brown sputum. He denies any associated chest pain, nausea, vomiting , diarrhea, dysuria or headaches. He does continue to smoke but does want to quit. 11-15 he remains very short of breath needing oxygen. Patient is very congested coughing up not able to do much activity without becoming short of breath. Will not be ready for discharge in the next day to be made a full admission. May need to go to a shelter facility at discharge. At this time is requiring oxygen and if things don't improve he will need oxygen at home Needs to use the incentive spirometry. Wants to quit smoking. Wants treatment VERY anxious States he sometimes has diarrhea we'll place on Lactinex 11-16 complains of sore throat and now constipation also states needs something to relax him through the day and at night will adjust meds dw RN AND PT Objective Vitals Vital Signs Date Time Temp Pulse Resp B/P Pulse Ox O2 Delivery O2 Flow Rate FiO2 11/16/16 07:43 97.5 106 19 127/62 94 11/16/16 04:00 98.2 114 18 155/69 93 11/16/16 03:55 101 11/16/16 00:00 98.0 101 22 142/64 94 11/15/16 21:38 98.4 98 18 118/58 94 11/15/16 19:58 95 21 11/15/16 16:17 88 11/15/16 15:58 98.0 103 18 122/58 95 11/15/16 12:46 105 11/15/16 12:00 99.6 111 20 113/58 97 11/15/16 08:00 98.6 114 20 143/61 86 I/O 11/15/16 11/15/16 11/15/16 11/16/16 11/16/16 11/16/16 07:00 15:00 23:00 07:00 15:00 23:00 Intake Total 250 ml 480 ml 240 ml Output Total 1 ml Balance 249 ml 480 ml 240 ml Intake Oral 250 ml 480 ml 240 ml Output Stool Total 1 ml # Voids 3 4 1 # Bowel Movements 3 0 Result Diagram: 11/15/16 0629 11/15/16 06 Other Results Laboratory Tests Test 11/14/16 11/15/16 14:25 06:29 White Blood Count 9.3 TH/MM3 10.3 TH/MM3 Red Blood Count 4.35 MIL/MM3 4.05 MIL/MM3 Hemoglobin 13.3 GM/DL 12.3 GM/DL Hematocrit 39.4 % 37.4 % Mean Corpuscular Volume 90.6 FL 92.4 FL Mean Corpuscular Hemoglobin 30.6 PG 30.3 PG Mean Corpuscular Hemoglobin 33.8 % 32.8 % Concent Red Cell Distribution Width 13.6 % 13.8 % Platelet Count 152 TH/MM3 161 TH/MM3 Mean Platelet Volume 13.7 FL 12.9 FL Neutrophils (%) (Auto) 64.0 % 86.5 % Lymphocytes (%) (Auto) 15.0 % 9.7 % Monocytes (%) (Auto) 17.7 % 3.5 % Eosinophils (%) (Auto) 2.7 % 0.1 % Basophils (%) (Auto) 0.6 % 0.2 % Neutrophils # (Auto) 6.0 TH/MM3 8.9 TH/MM3 Lymphocytes # (Auto) 1.4 TH/MM3 1.0 TH/MM3 Monocytes # (Auto) 1.6 TH/MM3 0.4 TH/MM3 Eosinophils # (Auto) 0.3 TH/MM3 0.0 TH/MM3 Basophils # (Auto) 0.1 TH/MM3 0.0 TH/MM3 CBC Comment AUTO DIFF AUTO DIFF Differential Comment AUTO DIFF AUTO DIFF CONFIRMED CONFIRMED Platelet Morphology Comment ENLARGED ENLARGED Sodium Level 139 MEQ/L 139 MEQ/L Potassium Level 4.2 MEQ/L 3.5 MEQ/L Chloride Level 105 MEQ/L 105 MEQ/L Carbon Dioxide Level 28.0 MEQ/L 25.9 MEQ/L Anion Gap 6 MEQ/L 8 MEQ/L Blood Urea Nitrogen 5 MG/DL 7 MG/DL Creatinine 0.79 MG/DL 0.70 MG/DL Estimat Glomerular Filtration 99 ML/MIN 114 ML/MIN Rate Random Glucose 125 MG/DL 155 MG/DL Calcium Level 9.2 MG/DL 8.9 MG/DL Total Creatine Kinase 59 U/L Troponin I LESS THAN 0.02 NG/ML Platelet Estimate NORMAL Hemoglobin A1c 5.6 % Phosphorus Level 2.5 MG/DL Magnesium Level 2.0 MG/DL Total Bilirubin 0.4 MG/DL Aspartate Amino Transf 21 U/L (AST/SGOT) Alanine Aminotransferase 17 U/L (ALT/SGPT) Alkaline Phosphatase 80 U/L Total Protein 7.1 GM/DL Albumin 3.5 GM/DL Free Thyroxine 1.72 NG/DL Thyroid Stimulating Hormone 0.360 uIU/ML 3rd Gen Imaging Last Impressions Chest X-Ray 11/14/16 1422 Signed Impressions: Service Date/Time: Monday, November 14, 2016 14:36 - CONCLUSION: No acute disease. Cortez Frazier MD FACR Objective Remarks GENERAL: This is a well-nourished, well-developed patient, in no apparent distress. Has chronic left-sided weakness with chronic left-sided facial droop SKIN: No rashes, ecchymoses or lesions. Cool and dry. HEAD: Atraumatic. Normocephalic. EYES: Pupils equal round and reactive. Extraocular muscles appear grossly intact ENT: Nose without bleeding, purulent drainage or septal hematoma. Airway patent. Tongue midline NECK: Trachea midline. No JVD or lymphadenopathy. Supple, nontender, no meningeal signs. CARDIOVASCULAR: Regular rate and rhythm without murmurs, gallops, or rubs. S1 and S2 no S3 or S4 no heave or thrill or rub or gallop RESPIRATORY: Coarse breath sounds bilaterally Breath sounds equal bilaterally. Rhonchi and wheezes throughout bilaterally SLOW IMPROVEMENT GASTROINTESTINAL: Abdomen soft, non-tender, nondistended. No hepato-splenomegaly , or palpable masses. No guarding. MUSCULOSKELETAL: Extremities without clubbing, cyanosis, or edema. No joint tenderness, effusion, or edema noted. No calf tenderness. Motor strength 4.5 out of 5 on the right and 3.5-4 out of 5 on the left NEUROLOGICAL: Awake and alert. Motor and sensory grossly within normal limits. Left sided weakness. Normal speech. Insight and judgment are fair mood and behavior is somewhat appropriate Medications and IVs Current Medications Methylprednisolone Sodium Succinate (SoluMEDROL INJ) 125 mg ONCE ONCE IVP Last administered on 11/14/16t 14:50; Start 11/14/16 at 14:30; Stop 11/14/16 at 14:33; Status DC Albuterol Sulfate (Albuterol Neb) 2.5 mg Q15M INH Last administered on 14:42; Start 11/14/16 at 14:30; Stop 11/14/16 at 14:46; Status DC Sodium Chloride 2 ml 2 ml UNSCH PRN IVF FLUSH AFTER USING IV ACCESS; Start at 14:30; Stop 11/14/16 at 19:33; Status DC Azithromycin/ Sodium Chloride (Zithromax Inj/ NS 250 ml Inj) 250 ml @ 250 mls/ hr ONCE ONCE IV Last administered on 11/14/16 17:04; Start 11/14/16 at 16:30 ; Stop 11/14/16 at 17:29; Status DC Albuterol Sulfate (Albuterol Neb) 2.5 mg Q15M INH Last administered on 17:42; Start 11/14/16 at 16:30; Stop 11/14/16 at 16:46; Status DC Dextrose (D50w (Vial) Inj) 50 ml UNSCH PRN IV HYPOGLYCEMIA-SEE COMMENTS; Start 11/14/16 at 19:30 Glucagon (Glucagon Inj) 1 mg UNSCH PRN OTHER HYPOGLYCEMIA-SEE COMMENTS; Start 11/14/16 at 19:30 Insulin Aspart (NovoLOG SUPPLEMENTAL SCALE) 1 ACHS SLIDING SCALE SQ Last administered on 11/16/16 06:44; Start 11/14/16 at 21:00 Albuterol Sulfate (Proair Hfa Inh) 2 puff QID PRN INH SHORTNESS OF BREATH; Start 11/14/16 at 19:30; Stop 11/14/16 at 19:38; Status DC Alprazolam (Xanax) 1 mg TID PRN PO ANXIETY Last administered on 11/16/16 04:21 ; Start 11/14/16 at 19:30 Baclofen (Lioresal) 10 mg TID PRN PO MUSCLE SPASM; Start 11/14/16 at 19:30 Diltiazem HCl (Cardizem) 30 mg DAILY PO Last administered on 11/15/16 09:10; Start 11/15/16 at 09:00 Ferrous Sulfate (Ferrous Sulfate) 325 mg DAILY PO Last administered on 09:09; Start 11/15/16 at 09:00 Folic Acid (Folate) 1 mg DAILY PO Last administered on 11/15/16 09:10; Start 11/15/16 at 09:00 Gabapentin (Neurontin) 100 mg TID PO Last administered on 11/15/16 18:11; Start 11/15/16 at 09:00 Ipratropium [place] (Atrovent Hfa Inh) 2 puff QID INH ; Start 11/14/16 at 21:00 ; Stop 11/14/16 at 21:00; Status DC Levothyroxine Sodium (Synthroid) 50 mcg DAILY@06 PO Last administered on 06:44; Start 11/15/16 at 06:00 Pantoprazole Sodium (Protonix) 40 mg DAILY PO Last administered on 11/15/16 09 :11; Start 11/15/16 at 09:00 Risperidone (risperDAL) 0.5 mg HS PO Last administered on 11/15/16 21:58; Start 11/14/16 at 21:00 Tramadol HCl (Ultram) 50 mg Q4H PRN PO PAIN 3-5 Last administered on 11/16/16 04:21; Start 11/14/16 at 19:30 Sodium Chloride (NS Flush) 2 ml UNSCH PRN IV FLUSH FLUSH AFTER USING IV ACCESS ; Start 11/14/16 at 19:30; Stop 11/14/16 at 19:30; Status DC Sodium Chloride (NS Flush) 2 ml BID IV FLUSH ; Start 11/14/16 at 21:00; Stop at 21:00; Status DC Acetaminophen (Tylenol) 650 mg Q4H PRN PO TEMP > 100.4; Start 11/14/16 at 19:30 Ondansetron HCl (Zofran Inj) 4 mg Q6H PRN IVP NAUSEA OR VOMITING; Start at 19:30 Prochlorperazine (Compazine Supp) 25 mg Q12H PRN SC NAUSEA OR VOMITING; Start 11/14/16 at 19:30; Stop 11/14/16 at 19:40; Status DC Enoxaparin Sodium (Lovenox Inj) 40 mg Q24H SQ Last administered on 8/17/17at 21 :57; Start 11/14/16 at 21:00 Acetaminophen (Tylenol) 650 mg Q6H PRN PO PAIN SCALE 1 TO 2; Start 11/14/16 at 19:30 Morphine Sulfate (Morphine Inj) 2 mg Q3H PRN IV Pain 3-5; if unable to take PO ; Start 11/14/16 at 19:30 Morphine Sulfate (Morphine Inj) 4 mg Q3H PRN IV Pain 6-10;if unable to take PO ; Start 11/14/16 at 19:30 Naloxone HCl (Narcan Inj) 0.4 mg UNSCH PRN IV SEE LABEL COMMENTS; Start at 19:30 Senna/Docusate Sodium (Elysia-Colace) 1 tab BID PO Last administered on 20:27; Start 11/14/16 at 21:00 Magnesium Hydroxide (Milk Of Magnesia Liq) 30 ml Q12H PRN PO MILD - MODERATE CONSTIPATION; Start 11/14/16 at 19:30 Sennosides (Senokot) 17.2 mg Q12H PRN PO MODERATE - SEVERE CONSTIPATION; Start 11/14/16 at 19:30 Bisacodyl (Dulcolax Supp) 10 mg DAILY PRN RECTAL SEVERE CONSITIPATION; Start at 19:30 Lactulose (Lactulose Liq) 30 ml DAILY PRN PO SEVERE CONSITIPATION; Start at 19:30 Sodium Chloride (NS Flush) 2 ml BID IV FLUSH Last administered on 11/15/16 21: 57; Start 11/14/16 at 21:00 Sodium Chloride (NS Flush) 2 ml UNSCH PRN IV FLUSH FLUSH AFTER USING IV ACCESS ; Start 11/14/16 at 19:30 Albuterol/ Ipratropium (Duoneb Neb) 1 ampule Q4HR NEB INH Last administered on 11/16/16 03:05; Start 11/14/16 at 20:00 Albuterol Sulfate (Albuterol Neb) 2.5 mg Q2HR NEB PRN INH SHORTNESS OF BREATH; Start 11/14/16 at 19:30 Budesonide/ Formoterol Fumarate (Symbicort 160-4.5 Inh) 2 puff Q12HR INH ; Start 11/14/16 at 21:00; Stop 11/14/16 at 21:00; Status DC Methylprednisolone Sodium Succinate 60 mg 60 mg Q6H IVP Last administered on 02:21; Start 11/14/16 at 20:00 Ceftriaxone Sodium/Sodium Chloride (Rocephin Inj/NS Inj) 100 ml @ 200 mls/hr Q24H IV ; Start 11/15/16 at 20:00; Stop 11/15/16 at 20:00; Status DC Nicotine 1 patch 1 patch DAILY TD ; Start 11/15/16 at 09:00 Azithromycin 500 mg/Sodium Chloride 250 ml @ 250 mls/hr Q24H IV ; Start at 17:00; Stop 11/15/16 at 17:00; Status DC Levofloxacin/ Dextrose (Levaquin 750 Mg Premix Inj) 150 ml @ 100 mls/hr Q24H IV Last administered on 11/15/16 21:57; Start 11/14/16 at 22:00 Lactobacillus Acidophilus (Lactinex) 1 tab TID PO Last administered on 18:11; Start 11/15/16 at 14:00 Guaifenesin (Mucinex Er) 600 mg BID PO Last administered on 11/15/16 21:58; Start 11/15/16 at 13:00 A/P Problem List: (1) COPD with exacerbation ICD Code: J44.1 Status: Acute (2) Left leg weakness ICD Code: M62.81 Status: Acute (3) Left leg pain ICD Code: M79.605 Status: Acute (4) Hypoxia ICD Code: R09.02 Status: Acute (5) Tobacco abuse ICD Code: Z72.0 Status: Acute (6) Respiratory failure ICD Code: J96.90 Status: Acute Assessment and Plan 61 y/o male with a history of COPD, HTN, CVA with left sided weakness, Anemia, anxiety, depression, CAD and hypothyroid presented to the ED with complaints of dyspnea and cough for the last few days. COPD exacerbation, patient is not on O2 at home Chest x ray reviewed and is unremarkable -Solumedrol IV -Duonebs scheduled and prn -Levaquin IV Daily- possible early pneumonia in copd pt, with xray lagging behind -Morphine IV for pain management -Sputum culture ordered MUCINEX IS Other chronic medical conditions anemia, hypothyroid HOME MEDS, and anxiety HOME MEDS TOBACCO ABUSE SMOKING CESSATION ANXIETY- HOME MEDS INSOMNIA- MEDS FOR SLEEP CONSTIPATION PROTOCOL DVT prophylaxis: Lovenox, SCDs NEEDS FULL ADMIT WILL NOT IMPROVE FAST ENOUGH Cortez Parks DO Nov 16, 2016 08:04
[2016-11-16] MEDS: FOLIC ACID 1 MG TAB PO SCH (08:35)
[2016-11-16] MEDS: DILTIAZEM HCL 30 MG TAB PO SCH (08:35)
[2016-11-16] MEDS: SODIUM CHLORIDE 0.9% FLUSH 10 ML FLUSH IV FLUSH SCH ×2 (08:35→21:00)
[2016-11-16] MEDS: LACTOBACILLUS ACIDOPHILUS TAB PO SCH ×3 (08:35→17:03)
[2016-11-16] MEDS: PANTOPRAZOLE SOD 40 MG DELAYED RELEASE TAB PO SCH (08:35)
[2016-11-16] MEDS: FERROUS SULFATE 325 MG (65 MG ELEMENTAL IRON) TAB PO SCH (08:36)
[2016-11-16] MEDS: DOCUSATE SODIUM 50 MG/SENNA 8.6 MG TAB PO SCH ×2 (08:36→20:57)
[2016-11-16] MEDS: GABAPENTIN 100 MG CAP PO SCH ×3 (08:36→17:03)
[2016-11-16] MEDS: guaiFENesin E.R. 600 MG TAB PO SCH ×2 (08:36→20:57)
[2016-11-16] MEDS: POLYETHYLENE GLYCOL 17 GM PKG PO SCH (08:40)
[2016-11-16] MEDS: DOCUSATE SODIUM 100 MG CAP PO SCH ×2 (08:40→20:57)
[2016-11-16] MEDS: NICOTINE 21 MG/24 HR PATCH TD SCH (08:46)
[2016-11-16] MEDS: risperiDONE 0.5 MG TAB PO SCH (20:57)
[2016-11-16] MEDS: ENOXAPARIN SODIUM 40 MG/0.4 ML SYRINGE SQ SCH (20:57)
[2016-11-16] MEDS: LEVOFLOXACIN 750 MG PREMIX INJ 150 ML IV SCH (22:43)
[2016-11-17] VITALS (9 sets, daily range): BP systolic 134–167; BP diastolic 64–77; PULSE 88–105; RESP 18–28; TEMP 96–98.8; O2SAT 92–96
[2016-11-17] MEDS: methylPREDNISolone SOD SUCC 125 MG/2 ML VIAL IVP SCH ×4 (02:22→21:02)
[2016-11-17] MEDS: BENZOCAINE 6 MG/MENTHOL 10 MG LOZENGE BUCCAL PRN ×2 (02:25→22:03)
[2016-11-17] MEDS: BACLOFEN 10 MG TAB PO PRN ×2 (02:25→17:30)
[2016-11-17] MEDS: RESP: ALBUTEROL 2.5 MG/IPRATROPIUM 0.5 MG NEB (SCH) INH ×5 (03:45→20:34)
[2016-11-17] MEDS: LEVOTHYROXINE SODIUM 50 MCG TAB PO SCH (06:10)
[2016-11-17] MEDS: INSULIN ASPART SUPPLEMENTAL SCALE SQ SCH ×4 (06:16→21:00)
[2016-11-17] MEDS: ALPRAZolam 1 MG TAB PO PRN ×2 (08:47→17:30)
[2016-11-17] MEDS: GABAPENTIN 100 MG CAP PO SCH ×3 (08:48→17:30)
[2016-11-17] MEDS: SODIUM CHLORIDE 0.9% FLUSH 10 ML FLUSH IV FLUSH SCH ×2 (08:48→21:04)
[2016-11-17] MEDS: guaiFENesin E.R. 600 MG TAB PO SCH ×2 (08:48→21:04)
[2016-11-17] MEDS: PANTOPRAZOLE SOD 40 MG DELAYED RELEASE TAB PO SCH (08:48)
[2016-11-17] MEDS: LACTOBACILLUS ACIDOPHILUS TAB PO SCH ×3 (08:48→17:30)
[2016-11-17] MEDS: FOLIC ACID 1 MG TAB PO SCH (08:48)
[2016-11-17] MEDS: DILTIAZEM HCL 30 MG TAB PO SCH (08:48)
[2016-11-17] MEDS: DOCUSATE SODIUM 100 MG CAP PO SCH ×2 (08:49→21:00)
[2016-11-17] MEDS: POLYETHYLENE GLYCOL 17 GM PKG PO SCH (08:49)
[2016-11-17] MEDS: FERROUS SULFATE 325 MG (65 MG ELEMENTAL IRON) TAB PO SCH (08:49)
[2016-11-17] MEDS: DOCUSATE SODIUM 50 MG/SENNA 8.6 MG TAB PO SCH ×2 (08:49→21:00)
[2016-11-17 09:54] LABS: AUTOMATED NEUTROPHIL # 13.8 TH/MM3 (1.8-7.7); BASOPHIL % 0.1 % (0.0-2.0); EOSINOPHIL % 0.1 % (0.0-4.0); HEMATOCRIT 41.5 % (39.0-51.0); LYMPH % 6.3 % (9.0-44.0); MEAN CELL VOLUME 91.4 FL (80.0-100.0); MEAN CORPUSCULAR HEMOGLOBIN 30.5 PG (27.0-34.0); MEAN CORPUSCULAR HGB CONC 33.4 % (32.0-36.0); MONO % 6.3 % (0.0-8.0); NEUT % 87.2 % (16.0-70.0); PLATELET COUNT 193 TH/MM3 (150-450); RED BLOOD COUNT 4.54 MIL/MM3 (4.50-5.90); RED CELL DISTRIBUTION WIDTH 13.8 % (11.6-17.2); WHITE BLOOD COUNT 15.8 TH/MM3 (4.0-11.0)
[2016-11-17 09:56] LABS: HEMO FLAGS AUTO DIFF
[2016-11-17 10:22] LABS: ALKALINE PHOSPHATASE 82 U/L (45-117); ALT (GPT) 28 U/L (12-78); ANION GAP 6 MEQ/L (5-15); AST (GOT) 29 U/L (15-37); BICARBONATE 28.3 MEQ/L (21.0-32.0); BLOOD UREA NITROGEN 18 MG/DL (7-18); CHLORIDE 103 MEQ/L (98-107); GLOMERULAR FILTRATION RATE 96 ML/MIN (>89); MAGNESIUM 2.5 MG/DL (1.5-2.5); POTASSIUM 3.8 MEQ/L (3.5-5.1); SODIUM (NA) 137 MEQ/L (136-145); TOTAL BILIRUBIN ADULT 0.4 MG/DL (0.2-1.0)
[2016-11-17 10:37] LABS: PLATELET ESTIMATE SMEAR NORMAL (NORMAL); PLATELET MORPHOLOGY ENLARGED (NORMAL); SCAN/DIFF AUTO DIFF CONFIRMED
--- NOTE | 2016-11-17 11:33 | HHI.PR ---
Subjective Remarks 61 y/o male with a history of COPD, HTN, CVA with left sided weakness, Anemia, anxiety, depression, CAD and hypothyroid presented to the ED with complaints of dyspnea and cough. He states he has had this cough for the last 4 days and has been short of breath with it, and is worse in the morning. Patient states he did have a fever but does not know how high. He does have a productive cough with yellow brown sputum. He denies any associated chest pain, nausea, vomiting , diarrhea, dysuria or headaches. He does continue to smoke but does want to quit. 11-15 he remains very short of breath needing oxygen. Patient is very congested coughing up not able to do much activity without becoming short of breath. Will not be ready for discharge in the next day to be made a full admission. May need to go to a [facility]p facility at discharge. At this time is requiring oxygen and if things don't improve he will need oxygen at home Needs to use the incentive spirometry. Wants to quit smoking. Wants treatment VERY anxious States he sometimes has diarrhea we'll place on Lactinex 11-16 complains of sore throat and now constipation also states needs something to relax him through the day and at night will adjust meds dw RN AND PT 11-17 still sob wants dry eye medications and Bactroban to bl feet NEEDS A WALK TEST TO SEE IF NEED FOR OXYGEN WILL NEED SNF AT [place] IF AGREEABLE DW RN AND PT AND CM Objective Vitals Vital Signs Date Time Temp Pulse Resp B/P Pulse Ox O2 Delivery O2 Flow Rate FiO2 11/17/16 09:20 92 21 11/17/16 08:00 98.7 90 23 149/71 93 11/17/16 04:25 98.1 99 20 147/64 95 11/17/16 00:30 97.9 104 19 158/70 93 11/16/16 23:50 92 21 11/16/16 20:25 98.0 97 18 133/71 95 11/16/16 16:18 93 21 11/16/16 15:46 98.3 105 19 170/75 94 11/16/16 11:53 93 21 11/16/16 11:33 98.2 86 19 121/58 94 I/O 11/16/16 11/16/16 11/16/16 11/17/16 11/17/16 11/17/16 07:00 15:00 23:00 07:00 15:00 23:00 Intake Total 240 ml 700 ml 240 ml 240 ml Output Total 300 ml 400 ml Balance 240 ml 400 ml 240 ml -160 ml Intake Oral 240 ml 700 ml 240 ml 240 ml Output Urine Total 300 ml 400 ml # Voids 1 2 1 1 # Bowel Movements 0 0 1 Result Diagram: 11/17/16 0904 11/17/16 0904 Other Results Laboratory Tests Test 11/17/16 09:04 White Blood Count 15.8 TH/MM3 Red Blood Count 4.54 MIL/MM3 Hemoglobin 13.8 GM/DL Hematocrit 41.5 % Mean Corpuscular Volume 91.4 FL Mean Corpuscular Hemoglobin 30.5 PG Mean Corpuscular Hemoglobin 33.4 % Concent Red Cell Distribution Width 13.8 % Platelet Count 193 TH/MM3 Mean Platelet Volume 13.4 FL Neutrophils (%) (Auto) 87.2 % Lymphocytes (%) (Auto) 6.3 % Monocytes (%) (Auto) 6.3 % Eosinophils (%) (Auto) 0.1 % Basophils (%) (Auto) 0.1 % Neutrophils # (Auto) 13.8 TH/MM3 Lymphocytes # (Auto) 1.0 TH/MM3 Monocytes # (Auto) 1.0 TH/MM3 Eosinophils # (Auto) 0.0 TH/MM3 Basophils # (Auto) 0.0 TH/MM3 CBC Comment AUTO DIFF Differential Comment AUTO DIFF CONFIRMED Platelet Estimate NORMAL Platelet Morphology Comment ENLARGED Red Cell Morphology Comment NORMAL Sodium Level 137 MEQ/L Potassium Level 3.8 MEQ/L Chloride Level 103 MEQ/L Carbon Dioxide Level 28.3 MEQ/L Anion Gap 6 MEQ/L Blood Urea Nitrogen 18 MG/DL Creatinine 0.81 MG/DL Estimat Glomerular Filtration 96 ML/MIN Rate Random Glucose 138 MG/DL Calcium Level 9.2 MG/DL Phosphorus Level 2.8 MG/DL Magnesium Level 2.5 MG/DL Total Bilirubin 0.4 MG/DL Aspartate Amino Transf 29 U/L (AST/SGOT) Alanine Aminotransferase 28 U/L (ALT/SGPT) Alkaline Phosphatase 82 U/L Total Protein 7.8 GM/DL Albumin 3.9 GM/DL Imaging Last Impressions Chest X-Ray 11/14/16 [id number] Signed Impressions: Service Date/Time: Monday, November 14, 2016 14:36 - CONCLUSION: No acute disease. Cortez Frazier MD FACR Objective Remarks GENERAL: This is a NOT SO well-nourished, well-developed patient, in MILD apparent distress. Has chronic left-sided weakness with chronic left-sided facial droop SKIN: No rashes, ecchymoses or lesions. Cool and dry. HEAD: Atraumatic. Normocephalic. EYES: Pupils equal round and reactive. Extraocular muscles appear grossly intact ENT: Nose without bleeding, purulent drainage or septal hematoma. Airway patent. Tongue midline NECK: Trachea midline. No JVD or lymphadenopathy. Supple, nontender, no meningeal signs. CARDIOVASCULAR: Regular rate and rhythm without murmurs, gallops, or rubs. S1 and S2 no S3 or S4 no heave or thrill or rub or gallop RESPIRATORY: Coarse breath sounds bilaterally Breath sounds equal bilaterally. Rhonchi and wheezes throughout bilaterally SLOW IMPROVEMENT GASTROINTESTINAL: Abdomen soft, non-tender, nondistended. No hepato-splenomegaly , or palpable masses. No guarding. MUSCULOSKELETAL: Extremities without clubbing, cyanosis, or edema. No joint tenderness, effusion, or edema noted. No calf tenderness. Motor strength 4.5 out of 5 on the right and 3.5-4 out of 5 on the left NEUROLOGICAL: Awake and alert. Motor and sensory grossly within normal limits. Left sided weakness. Normal speech. Insight and judgment are fair mood and behavior is somewhat appropriate Medications and IVs Current Medications Methylprednisolone Sodium Succinate (SoluMEDROL INJ) 125 mg ONCE ONCE IVP Last administered on 11/14/16 14:50; Start 11/14/16 at 14:30; Stop 11/14/16 at 14:33; Status DC Albuterol Sulfate (Albuterol Neb) 2.5 mg Q15M INH Last administered on 14:42; Start 11/14/16 at 14:30; Stop 11/14/16 at 14:46; Status DC Sodium Chloride 2 ml 2 ml UNSCH PRN IVF FLUSH AFTER USING IV ACCESS; Start at 14:30; Stop 11/14/16 at 19:33; Status DC Azithromycin/ Sodium Chloride (Zithromax Inj/ NS 250 ml Inj) 250 ml @ 250 mls/ hr ONCE ONCE IV Last administered on 8/16/17at 17:04; Start 11/14/16 at 16:30 ; Stop 11/14/16 at 17:29; Status DC Albuterol Sulfate (Albuterol Neb) 2.5 mg Q15M INH Last administered on 17:42; Start 11/14/16 at 16:30; Stop 11/14/16 at 16:46; Status DC Dextrose (D50w (Vial) Inj) 50 ml UNSCH PRN IV HYPOGLYCEMIA-SEE COMMENTS; Start 11/14/16 at 19:30 Glucagon (Glucagon Inj) 1 mg UNSCH PRN OTHER HYPOGLYCEMIA-SEE COMMENTS; Start 11/14/16 at 19:30 Insulin Aspart (NovoLOG SUPPLEMENTAL SCALE) 1 ACHS SLIDING SCALE SQ Last administered on 11/16/16 16:00; Start 11/14/16 at 21:00 Albuterol Sulfate (Proair Hfa Inh) 2 puff QID PRN INH SHORTNESS OF BREATH; Start 11/14/16 at 19:30; Stop 11/14/16 at 19:38; Status DC Alprazolam (Xanax) 1 mg TID PRN PO ANXIETY Last administered on 11/17/16 08:47 ; Start 11/14/16 at 19:30 Baclofen (Lioresal) 10 mg TID PRN PO MUSCLE SPASM Last administered on 02:25; Start 11/14/16 at 19:30 Diltiazem HCl (Cardizem) 30 mg DAILY PO Last administered on 11/17/16 08:48; Start 11/15/16 at 09:00 Ferrous Sulfate (Ferrous Sulfate) 325 mg DAILY PO Last administered on 08:49; Start 11/15/16 at 09:00 Folic Acid (Folate) 1 mg DAILY PO Last administered on 11/17/16 08:48; Start 11/15/16 at 09:00 Gabapentin (Neurontin) 100 mg TID PO Last administered on 11/17/16 08:48; Start 11/15/16 at 09:00 Ipratropium [place] (Atrovent Hfa Inh) 2 puff QID INH ; Start 11/14/16 at 21:00 ; Stop 11/14/16 at 21:00; Status DC Levothyroxine Sodium (Synthroid) 50 mcg DAILY@06 PO Last administered on 06:10; Start 11/15/16 at 06:00 Pantoprazole Sodium (Protonix) 40 mg DAILY PO Last administered on 11/17/16 08 :48; Start 11/15/16 at 09:00 Risperidone (risperDAL) 0.5 mg HS PO Last administered on 11/16/16 20:57; Start 11/14/16 at 21:00 Tramadol HCl (Ultram) 50 mg Q4H PRN PO PAIN 3-5 Last administered on 11/16/16 04:21; Start 11/14/16 at 19:30 Sodium Chloride (NS Flush) 2 ml UNSCH PRN IV FLUSH FLUSH AFTER USING IV ACCESS ; Start 11/14/16 at 19:30; Stop 11/14/16 at 19:30; Status DC Sodium Chloride (NS Flush) 2 ml BID IV FLUSH ; Start 11/14/16 at 21:00; Stop at 21:00; Status DC Acetaminophen (Tylenol) 650 mg Q4H PRN PO TEMP > 100.4; Start 11/14/16 at 19:30 Ondansetron HCl (Zofran Inj) 4 mg Q6H PRN IVP NAUSEA OR VOMITING; Start at 19:30 Prochlorperazine (Compazine Supp) 25 mg Q12H PRN AR NAUSEA OR VOMITING; Start 11/14/16 at 19:30; Stop 11/14/16 at 19:40; Status DC Enoxaparin Sodium (Lovenox Inj) 40 mg Q24H SQ Last administered on 11/15/16 21 :57; Start 11/14/16 at 21:00 Acetaminophen (Tylenol) 650 mg Q6H PRN PO PAIN SCALE 1 TO 2; Start 11/14/16 at 19:30 Morphine Sulfate (Morphine Inj) 2 mg Q3H PRN IV Pain 3-5; if unable to take PO ; Start 11/14/16 at 19:30 Morphine Sulfate (Morphine Inj) 4 mg Q3H PRN IV Pain 6-10;if unable to take PO ; Start 11/14/16 at 19:30 Naloxone HCl (Narcan Inj) 0.4 mg UNSCH PRN IV SEE LABEL COMMENTS; Start at 19:30 Senna/Docusate Sodium (Elysia-Colace) 1 tab BID PO Last administered on 20:27; Start 11/14/16 at 21:00; Stop 11/16/16 at 08:21; Status DC Magnesium Hydroxide (Milk Of Magnesia Liq) 30 ml Q12H PRN PO MILD - MODERATE CONSTIPATION; Start 11/14/16 at 19:30; Stop 11/16/16 at 08:13; Status DC Sennosides (Senokot) 17.2 mg Q12H PRN PO MODERATE - SEVERE CONSTIPATION; Start 11/14/16 at 19:30 Bisacodyl (Dulcolax Supp) 10 mg DAILY PRN RECTAL SEVERE CONSITIPATION; Start at 19:30; Stop 11/16/16 at 08:14; Status DC Lactulose (Lactulose Liq) 30 ml DAILY PRN PO SEVERE CONSITIPATION; Start at 19:30 Sodium Chloride (NS Flush) 2 ml BID IV FLUSH Last administered on 11/17/16 08: 48; Start 11/14/16 at 21:00 Sodium Chloride (NS Flush) 2 ml UNSCH PRN IV FLUSH FLUSH AFTER USING IV ACCESS ; Start 11/14/16 at 19:30 Albuterol/ Ipratropium (Duoneb Neb) 1 ampule Q4HR NEB INH Last administered on 11/17/16 09:15; Start 11/14/16 at 20:00 Albuterol Sulfate (Albuterol Neb) 2.5 mg Q2HR NEB PRN INH SHORTNESS OF BREATH; Start 11/14/16 at 19:30 Budesonide/ Formoterol Fumarate (Symbicort 160-4.5 Inh) 2 puff Q12HR INH ; Start 11/14/16 at 21:00; Stop 11/14/16 at 21:00; Status DC Methylprednisolone Sodium Succinate 60 mg 60 mg Q6H IVP Last administered on 08:48; Start 11/14/16 at 20:00 Ceftriaxone Sodium/Sodium Chloride (Rocephin Inj/NS Inj) 100 ml @ 200 mls/hr Q24H IV ; Start 11/15/16 at 20:00; Stop 11/15/16 at 20:00; Status DC Nicotine 1 patch 1 patch DAILY TD ; Start 11/15/16 at 09:00; Stop 11/16/16 at 17 :09; Status DC Azithromycin 500 mg/Sodium Chloride 250 ml @ 250 mls/hr Q24H IV ; Start at 17:00; Stop 11/15/16 at 17:00; Status DC Levofloxacin/ Dextrose (Levaquin 750 Mg Premix Inj) 150 ml @ 100 mls/hr Q24H IV Last administered on 11/16/16 22:43; Start 11/14/16 at 22:00 Lactobacillus Acidophilus (Lactinex) 1 tab TID PO Last administered on 08:48; Start 11/15/16 at 14:00 Guaifenesin (Mucinex Er) 600 mg BID PO Last administered on 11/17/16 08:48; Start 11/15/16 at 13:00 Benzocaine/Menthol (Chloraseptic Lamin) 1 lozenge UNSCH PRN BUCCAL SORE THROAT Last administered on 11/17/16 02:25; Start 11/16/16 at 08:00 Zolpidem Tartrate (Ambien) 5 mg HS PRN PO INSOMNIA; Start 11/16/16 at 08:00 Docusate Sodium (Colace) 100 mg BID PO Last administered on 11/16/16 20:57; Start 11/16/16 at 09:00 Senna/Docusate Sodium (Elysia-Colace) 2 tab BID PO Last administered on 20:57; Start 11/16/16 at 09:00 Polyethylene Glycol (Miralax) 17 gm DAILY PO Last administered on 11/16/16 08: 40; Start 11/16/16 at 09:00 Bisacodyl (Dulcolax Supp) 10 mg DAILY PRN RECTAL MODTO SEVERE CONSTIPATION; Start 11/16/16 at 08:00 Magnesium Hydroxide (Milk Of Magnesia Liq) 30 ml Q6H PRN PO MILD TO MODERATE CONSTIPATION; Start 11/16/16 at 08:00 A/P Problem List: (1) COPD with exacerbation ICD Code: J44.1 Status: Acute (2) Left leg weakness ICD Code: M62.81 Status: Acute (3) Left leg pain ICD Code: M79.605 Status: Acute (4) Hypoxia ICD Code: R09.02 Status: Acute (5) Tobacco abuse ICD Code: Z72.0 Status: Acute (6) Respiratory failure ICD Code: J96.90 Status: Acute Assessment and Plan 61 y/o male with a history of COPD, HTN, CVA with left sided weakness, Anemia, anxiety, depression, CAD and hypothyroid presented to the ED with complaints of dyspnea and cough for the last few days. COPD exacerbation, patient is not on O2 at home Chest x ray reviewed and is unremarkable -Solumedrol IV -Duonebs scheduled and prn -Levaquin IV Daily- possible early pneumonia in copd pt, with xray lagging behind -Morphine IV for pain management -Sputum culture ordered MUCINEX IS NEEDS WALK TEST TO DETERMINE NEED FOR OXYGEN Other chronic medical conditions anemia, hypothyroid HOME MEDS, and anxiety HOME MEDS TOBACCO ABUSE SMOKING CESSATION ANXIETY- HOME MEDS INSOMNIA- MEDS FOR SLEEP CONSTIPATION PROTOCOL DVT prophylaxis: Lovenox, SCDs DRY EYES ARTIFICIAL TEARS NEEDS FULL ADMIT WILL NOT IMPROVE FAST ENOUGH NEEDS SNF IF AGREEABLE JORY RN AND PATIENT AND CASE MANAGEMENT Cortez Parks DO Nov 17, 2016 11:33
[2016-11-17] MEDS: ARTIFICIAL TEARS OPTH SOLN 15 ML BTL EACH EYE PRN ×2 (13:31→22:20)
[2016-11-17] MEDS: MUPIROCIN 2% OINT 22 GM TUBE TOPICAL SCH ×2 (13:32→22:03)
[2016-11-17] MEDS: risperiDONE 0.5 MG TAB PO SCH (21:00)
[2016-11-17] MEDS: ENOXAPARIN SODIUM 40 MG/0.4 ML SYRINGE SQ SCH (21:00)
[2016-11-17] MEDS: LEVOFLOXACIN 750 MG PREMIX INJ 150 ML IV SCH (22:04)
[2016-11-18] VITALS (9 sets, daily range): BP systolic 144–172; BP diastolic 68–79; PULSE 70–106; RESP 18–20; TEMP 96.8–98.8; O2SAT 92–96
[2016-11-18] MEDS: ALPRAZolam 1 MG TAB PO PRN ×3 (02:37→18:32)
[2016-11-18] MEDS: methylPREDNISolone SOD SUCC 125 MG/2 ML VIAL IVP SCH ×4 (02:37→20:56)
[2016-11-18] MEDS: BACLOFEN 10 MG TAB PO PRN ×3 (02:37→18:32)
[2016-11-18] MEDS: RESP: ALBUTEROL 2.5 MG/IPRATROPIUM 0.5 MG NEB (SCH) INH ×6 (04:00→20:00)
[2016-11-18 04:11] LABS: AUTOMATED NEUTROPHIL # 11.3 TH/MM3 (1.8-7.7); BASOPHIL % 0.1 % (0.0-2.0); LYMPH % 6.5 % (9.0-44.0); LYMPHOCYTE # 0.9 TH/MM3 (1.0-4.8); MEAN CELL VOLUME 92.2 FL (80.0-100.0); MEAN CORPUSCULAR HEMOGLOBIN 30.1 PG (27.0-34.0); MEAN CORPUSCULAR HGB CONC 32.6 % (32.0-36.0); MONO % 7.5 % (0.0-8.0); NEUT % 85.9 % (16.0-70.0); PLATELET COUNT 190 TH/MM3 (150-450); RED BLOOD COUNT 4.23 MIL/MM3 (4.50-5.90); RED CELL DISTRIBUTION WIDTH 13.6 % (11.6-17.2); WHITE BLOOD COUNT 13.1 TH/MM3 (4.0-11.0)
[2016-11-18 04:28] LABS: HEMO FLAGS AUTO DIFF
[2016-11-18 04:52] LABS: ANION GAP 10 MEQ/L (5-15); AST (GOT) 24 U/L (15-37); BICARBONATE 23.7 MEQ/L (21.0-32.0); BLOOD UREA NITROGEN 16 MG/DL (7-18); CHLORIDE 106 MEQ/L (98-107); GLOMERULAR FILTRATION RATE 95 ML/MIN (>89); POTASSIUM 3.6 MEQ/L (3.5-5.1); SODIUM (NA) 140 MEQ/L (136-145)
[2016-11-18 04:58] LABS: ALKALINE PHOSPHATASE 71 U/L (45-117); ALT (GPT) 27 U/L (12-78); MAGNESIUM 2.3 MG/DL (1.5-2.5); TOTAL BILIRUBIN ADULT 0.3 MG/DL (0.2-1.0)
[2016-11-18 05:33] LABS: BANDS 1 % (0-6); MYELOCYTES 1 % (0-0); POLYS (SEG NEUTROPHILS) 82 % (16-70); WBC DIFF SAMPLE 100
[2016-11-18 05:34] LABS: PLATELET ESTIMATE SMEAR NORMAL (NORMAL); PLATELET MORPHOLOGY ENLARGED (NORMAL); SCAN/DIFF FINAL DIFF MANUAL
[2016-11-18] MEDS: LEVOTHYROXINE SODIUM 50 MCG TAB PO SCH (06:52)
[2016-11-18] MEDS: INSULIN ASPART SUPPLEMENTAL SCALE SQ SCH ×4 (06:52→21:00)
[2016-11-18] MEDS: LACTOBACILLUS ACIDOPHILUS TAB PO SCH ×3 (08:02→17:28)
[2016-11-18] MEDS: guaiFENesin E.R. 600 MG TAB PO SCH ×2 (08:02→20:56)
[2016-11-18] MEDS: GABAPENTIN 100 MG CAP PO SCH ×3 (08:02→17:28)
[2016-11-18] MEDS: PANTOPRAZOLE SOD 40 MG DELAYED RELEASE TAB PO SCH (08:02)
[2016-11-18] MEDS: FERROUS SULFATE 325 MG (65 MG ELEMENTAL IRON) TAB PO SCH (08:02)
[2016-11-18] MEDS: FOLIC ACID 1 MG TAB PO SCH (08:02)
[2016-11-18] MEDS: DILTIAZEM HCL 30 MG TAB PO SCH (08:02)
[2016-11-18] MEDS: DOCUSATE SODIUM 50 MG/SENNA 8.6 MG TAB PO SCH ×2 (08:03→20:57)
[2016-11-18] MEDS: DOCUSATE SODIUM 100 MG CAP PO SCH ×2 (08:03→20:57)
[2016-11-18] MEDS: POLYETHYLENE GLYCOL 17 GM PKG PO SCH (08:03)
[2016-11-18] MEDS: SODIUM CHLORIDE 0.9% FLUSH 10 ML FLUSH IV FLUSH SCH ×2 (08:03→20:57)
[2016-11-18] MEDS: MUPIROCIN 2% OINT 22 GM TUBE TOPICAL SCH ×2 (08:04→21:37)
[2016-11-18] MEDS: BENZOCAINE 6 MG/MENTHOL 10 MG LOZENGE BUCCAL PRN (12:45)
--- NOTE | 2016-11-18 15:00 | HHI.PR ---
Subjective Remarks 61 y/o male with a history of COPD, HTN, CVA with left sided weakness, Anemia, anxiety, depression, CAD and hypothyroid presented to the ED with complaints of dyspnea and cough. He states he has had this cough for the last 4 days and has been short of breath with it, and is worse in the morning. Patient states he did have a fever but does not know how high. He does have a productive cough with yellow brown sputum. He denies any associated chest pain, nausea, vomiting , diarrhea, dysuria or headaches. He does continue to smoke but does want to quit. 11-15 he remains very short of breath needing oxygen. Patient is very congested coughing up not able to do much activity without becoming short of breath. Will not be ready for discharge in the next day to be made a full admission. May need to go to a custodial facility at discharge. At this time is requiring oxygen and if things don't improve he will need oxygen at home Needs to use the incentive spirometry. Wants to quit smoking. Wants treatment VERY anxious States he sometimes has diarrhea we'll place on Lactinex 11-16 complains of sore throat and now constipation also states needs something to relax him through the day and at night will adjust meds dw RN AND PT 11-17 still sob wants dry eye medications and Bactroban to bl feet 11-18 NEEDS A WALK TEST TO SEE IF NEED FOR OXYGEN WILL NEED SNF [facility] IF AGREEABLE DW RN AND PT AND CM CONTINUE SAME AM LABS Objective Vitals Vital Signs Date Time Temp Pulse Resp B/P (MAP) Pulse Ox O2 Delivery O2 Flow Rate FiO2 11/18/16 11:30 96.8 101 20 146/79 (101) 93 11/18/16 08:00 70 11/18/16 07:40 98.8 90 20 151/70 (97) 92 11/18/16 04:12 98.5 95 18 144/68 (93) 94 11/18/16 00:17 98.5 99 18 153/76 (101) 96 11/17/16 20:33 93 Nasal Cannula 2.00 11/17/16 20:30 98.8 105 18 162/73 (102) 95 11/17/16 16:00 96.0 90 21 166/76 (106) 96 I/O 11/17/16 11/17/16 11/17/16 11/18/16 8/20/17 8/20/17 07:00 15:00 23:00 07:00 15:00 23:00 Intake Total 240 ml 720 ml 480 ml 240 ml Output Total 400 ml 500 ml 800 ml Balance -160 ml 720 ml -20 ml -560 ml Intake Oral 240 ml 720 ml 480 ml 240 ml Output Urine Total 400 ml 500 ml 800 ml # Voids 1 4 # Bowel Movements 1 2 0 0 Result Diagram: 11/18/16 0328 11/18/16 0328 Other Results Laboratory Tests Test 11/17/16 09:04 11/18/16 03:28 White Blood Count 15.8 TH/MM3 13.1 TH/MM3 Red Blood Count 4.54 MIL/MM3 4.23 MIL/MM3 Hemoglobin 13.8 GM/DL 12.7 GM/DL Hematocrit 41.5 % 39.0 % Mean Corpuscular Volume 91.4 FL 92.2 FL Mean Corpuscular Hemoglobin 30.5 PG 30.1 PG Mean Corpuscular Hemoglobin Concent 33.4 % 32.6 % Red Cell Distribution Width 13.8 % 13.6 % Platelet Count 193 TH/MM3 190 TH/MM3 Mean Platelet Volume 13.4 FL 13.9 FL Neutrophils (%) (Auto) 87.2 % 85.9 % Lymphocytes (%) (Auto) 6.3 % 6.5 % Monocytes (%) (Auto) 6.3 % 7.5 % Eosinophils (%) (Auto) 0.1 % 0.0 % Basophils (%) (Auto) 0.1 % 0.1 % Neutrophils # (Auto) 13.8 TH/MM3 11.3 TH/MM3 Lymphocytes # (Auto) 1.0 TH/MM3 0.9 TH/MM3 Monocytes # (Auto) 1.0 TH/MM3 1.0 TH/MM3 Eosinophils # (Auto) 0.0 TH/MM3 0.0 TH/MM3 Basophils # (Auto) 0.0 TH/MM3 0.0 TH/MM3 CBC Comment AUTO DIFF AUTO DIFF Differential Comment AUTO DIFF CONFIRMED FINAL DIFF MANUAL Platelet Estimate NORMAL NORMAL Platelet Morphology Comment ENLARGED ENLARGED Red Cell Morphology Comment NORMAL NORMAL Blood Urea Nitrogen 18 MG/DL 16 MG/DL Creatinine 0.81 MG/DL 0.82 MG/DL Random Glucose 138 MG/DL 168 MG/DL Total Protein 7.8 GM/DL 6.9 GM/DL Albumin 3.9 GM/DL 3.4 GM/DL Calcium Level 9.2 MG/DL 8.9 MG/DL Phosphorus Level 2.8 MG/DL 3.2 MG/DL Magnesium Level 2.5 MG/DL 2.3 MG/DL Alkaline Phosphatase 82 U/L 71 U/L Aspartate Amino Transf (AST/SGOT) 29 U/L 24 U/L Alanine Aminotransferase (ALT/SGPT) 28 U/L 27 U/L Total Bilirubin 0.4 MG/DL 0.3 MG/DL Sodium Level 137 MEQ/L 140 MEQ/L Potassium Level 3.8 MEQ/L 3.6 MEQ/L Chloride Level 103 MEQ/L 106 MEQ/L Carbon Dioxide Level 28.3 MEQ/L 23.7 MEQ/L Anion Gap 6 MEQ/L 10 MEQ/L Estimat Glomerular Filtration Rate 96 ML/MIN 95 ML/MIN Differential Total Cells Counted 100 Neutrophils % (Manual) 82 % Band Neutrophils % 1 % Lymphocytes % 8 % Monocytes % 8 % Neutrophils # (Manual) 11.0 TH/MM3 Myelocytes 1 % Imaging Last Impressions Chest X-Ray 11/14/16 1422 Signed Impressions: Service Date/Time: Monday, November 14, 2016 14:36 - CONCLUSION: No acute disease. Cortez Frazier MD FACR Objective Remarks GENERAL: This is a NOT SO well-nourished, well-developed patient, in MILD apparent distress. Has chronic left-sided weakness with chronic left-sided facial droop SKIN: No rashes, ecchymoses or lesions. Cool and dry. HEAD: Atraumatic. Normocephalic. EYES: Pupils equal round and reactive. Extraocular muscles appear grossly intact ENT: Nose without bleeding, purulent drainage or septal hematoma. Airway patent. Tongue midline NECK: Trachea midline. No JVD or lymphadenopathy. Supple, nontender, no meningeal signs. CARDIOVASCULAR: Regular rate and rhythm without murmurs, gallops, or rubs. S1 and S2 no S3 or S4 no heave or thrill or rub or gallop RESPIRATORY: Coarse breath sounds bilaterally Breath sounds equal bilaterally. Rhonchi and wheezes throughout bilaterally SLOW IMPROVEMENT GASTROINTESTINAL: Abdomen soft, non-tender, nondistended. No hepato-splenomegaly , or palpable masses. No guarding. MUSCULOSKELETAL: Extremities without clubbing, cyanosis, or edema. No joint tenderness, effusion, or edema noted. No calf tenderness. Motor strength 4.5 out of 5 on the right and 3.5-4 out of 5 on the left NEUROLOGICAL: Awake and alert. Motor and sensory grossly within normal limits. Left sided weakness. Normal speech. Insight and judgment are fair mood and behavior is somewhat appropriate Medications and IVs Current Medications Methylprednisolone Sodium Succinate (SoluMEDROL INJ) 125 mg ONCE ONCE IVP Last administered on 11/14/16 14:50; Start 11/14/16 at 14:30; Stop 11/14/16 at 14:33; Status DC Albuterol Sulfate (Albuterol Neb) 2.5 mg Q15M INH Last administered on 14:42; Start 11/14/16 at 14:30; Stop 11/14/16 at 14:46; Status DC Sodium Chloride (NS Flush) 2 ml UNSCH PRN IVF FLUSH AFTER USING IV ACCESS; Start 11/14/16 at 14:30; Stop 11/14/16 at 19:33; Status DC Azithromycin 500 mg/Sodium Chloride 250 ml @ 250 mls/hr ONCE ONCE IV Last administered on 11/14/16 17:04; Start 11/14/16 at 16:30; Stop 11/14/16 at 17:29 ; Status DC Albuterol Sulfate (Albuterol Neb) 2.5 mg Q15M INH Last administered on 17:42; Start 11/14/16 at 16:30; Stop 11/14/16 at 16:46; Status DC Dextrose (D50w (Vial) Inj) 50 ml UNSCH PRN IV HYPOGLYCEMIA-SEE COMMENTS; Start 11/14/16 at 19:30 Glucagon (Glucagon Inj) 1 mg UNSCH PRN OTHER HYPOGLYCEMIA-SEE COMMENTS; Start 11/14/16 at 19:30 Insulin Aspart (NovoLOG SUPPLEMENTAL SCALE) 1 ACHS SLIDING SCALE SQ Last administered on 11/18/16 10:53; Start 11/14/16 at 21:00 Albuterol Sulfate (Proair Hfa Inh) 2 puff QID PRN INH SHORTNESS OF BREATH; Start 11/14/16 at 19:30; Stop 11/14/16 at 19:38; Status DC Alprazolam (Xanax) 1 mg TID PRN PO ANXIETY Last administered on 11/18/16 10:48 ; Start 11/14/16 at 19:30 Baclofen (Lioresal) 10 mg TID PRN PO MUSCLE SPASM Last administered on 10:48; Start 11/14/16 at 19:30 Diltiazem HCl (Cardizem) 30 mg DAILY PO Last administered on 11/18/16 08:02; Start 11/15/16 at 09:00 Ferrous Sulfate (Ferrous Sulfate) 325 mg DAILY PO Last administered on 08:02; Start 11/15/16 at 09:00 Folic Acid (Folate) 1 mg DAILY PO Last administered on 11/18/16 08:02; Start 11/15/16 at 09:00 Gabapentin (Neurontin) 100 mg TID PO Last administered on 11/18/16 12:45; Start 11/15/16 at 09:00 Ipratropium [place] (Atrovent Hfa Inh) 2 puff QID INH ; Start 11/14/16 at 21:00 ; Stop 11/14/16 at 21:00; Status DC Levothyroxine Sodium (Synthroid) 50 mcg DAILY@06 PO Last administered on 06:52; Start 11/15/16 at 06:00 Pantoprazole Sodium (Protonix) 40 mg DAILY PO Last administered on 11/18/16 08 :02; Start 11/15/16 at 09:00 Risperidone (risperDAL) 0.5 mg HS PO Last administered on 11/17/16 21:00; Start 11/14/16 at 21:00 Tramadol HCl (Ultram) 50 mg Q4H PRN PO PAIN 3-5 Last administered on 11/16/16 04:21; Start 11/14/16 at 19:30 Sodium Chloride (NS Flush) 2 ml UNSCH PRN IV FLUSH FLUSH AFTER USING IV ACCESS ; Start 11/14/16 at 19:30; Stop 11/14/16 at 19:30; Status DC Sodium Chloride (NS Flush) 2 ml BID IV FLUSH ; Start 11/14/16 at 21:00; Stop at 21:00; Status DC Acetaminophen (Tylenol) 650 mg Q4H PRN PO TEMP > 100.4; Start 11/14/16 at 19:30 Ondansetron HCl (Zofran Inj) 4 mg Q6H PRN IVP NAUSEA OR VOMITING; Start at 19:30 Prochlorperazine (Compazine Supp) 25 mg Q12H PRN [place] NAUSEA OR VOMITING; Start 11/14/16 at 19:30; Stop 11/14/16 at 19:40; Status DC Enoxaparin Sodium (Lovenox Inj) 40 mg Q24H SQ Last administered on 11/15/16 21 :57; Start 11/14/16 at 21:00 Acetaminophen (Tylenol) 650 mg Q6H PRN PO PAIN SCALE 1 TO 2; Start 11/14/16 at 19:30 Morphine Sulfate (Morphine Inj) 2 mg Q3H PRN IV Pain 3-5; if unable to take PO ; Start 11/14/16 at 19:30 Morphine Sulfate (Morphine Inj) 4 mg Q3H PRN IV Pain 6-10;if unable to take PO ; Start 11/14/16 at 19:30 Naloxone HCl (Narcan Inj) 0.4 mg UNSCH PRN IV SEE LABEL COMMENTS; Start at 19:30 Senna/Docusate Sodium (Elysia-Colace) 1 tab BID PO Last administered on 20:27; Start 11/14/16 at 21:00; Stop 11/16/16 at 08:21; Status DC Magnesium Hydroxide (Milk Of Magnesia Liq) 30 ml Q12H PRN PO MILD - MODERATE CONSTIPATION; Start 11/14/16 at 19:30; Stop 11/16/16 at 08:13; Status DC Sennosides (Senokot) 17.2 mg Q12H PRN PO MODERATE - SEVERE CONSTIPATION; Start 11/14/16 at 19:30 Bisacodyl (Dulcolax Supp) 10 mg DAILY PRN RECTAL SEVERE CONSITIPATION; Start at 19:30; Stop 11/16/16 at 08:14; Status DC Lactulose (Lactulose Liq) 30 ml DAILY PRN PO SEVERE CONSITIPATION; Start at 19:30 Sodium Chloride (NS Flush) 2 ml BID IV FLUSH Last administered on 11/18/16 08: 03; Start 11/14/16 at 21:00 Sodium Chloride (NS Flush) 2 ml UNSCH PRN IV FLUSH FLUSH AFTER USING IV ACCESS Last administered on 11/18/16 14:33; Start 11/14/16 at 19:30 Albuterol/ Ipratropium (Duoneb Neb) 1 ampule Q4HR NEB INH Last administered on 11/17/16 20:34; Start 11/14/16 at 20:00 Albuterol Sulfate (Albuterol Neb) 2.5 mg Q2HR NEB PRN INH SHORTNESS OF BREATH; Start 11/14/16 at 19:30 Budesonide/ Formoterol Fumarate (Symbicort 160-4.5 Inh) 2 puff Q12HR INH ; Start 11/14/16 at 21:00; Stop 11/14/16 at 21:00; Status DC Methylprednisolone Sodium Succinate (SoluMEDROL INJ) 60 mg Q6H IVP Last administered on 11/18/16 14:33; Start 11/14/16 at 20:00 Ceftriaxone Sodium 1000 mg/ Sodium Chloride 100 ml @ 200 mls/hr Q24H IV ; Start 11/15/16 at 20:00; Stop 11/15/16 at 20:00; Status DC Nicotine (Habitrol 21 Mg Patch.24 Hr) 1 patch DAILY TD ; Start 11/15/16 at 09:00 ; Stop 11/16/16 at 17:09; Status DC Azithromycin 500 mg/Sodium Chloride 250 ml @ 250 mls/hr Q24H IV ; Start at 17:00; Stop 11/15/16 at 17:00; Status DC Levofloxacin/ Dextrose 150 ml @ 100 mls/hr Q24H IV Last administered on 22:04; Start 11/14/16 at 22:00 Lactobacillus Acidophilus (Lactinex) 1 tab TID PO Last administered on 12:45; Start 11/15/16 at 14:00 Guaifenesin (Mucinex Er) 600 mg BID PO Last administered on 11/18/16 08:02; Start 11/15/16 at 13:00 Benzocaine/Menthol (Chloraseptic Lamin) 1 lozenge UNSCH PRN BUCCAL SORE THROAT Last administered on 11/18/16 12:45; Start 11/16/16 at 08:00 Zolpidem Tartrate (Ambien) 5 mg HS PRN PO INSOMNIA; Start 11/16/16 at 08:00 Docusate Sodium (Colace) 100 mg BID PO Last administered on 11/16/16 20:57; Start 11/16/16 at 09:00 Senna/Docusate Sodium (Elysia-Colace) 2 tab BID PO Last administered on 20:57; Start 11/16/16 at 09:00 Polyethylene Glycol (Miralax) 17 gm DAILY PO Last administered on 11/16/16 08: 40; Start 11/16/16 at 09:00 Bisacodyl (Dulcolax Supp) 10 mg DAILY PRN RECTAL MODTO SEVERE CONSTIPATION; Start 11/16/16 at 08:00 Magnesium Hydroxide (Milk Of [place] Lilennie) 30 ml Q6H PRN PO MILD TO MODERATE CONSTIPATION; Start 11/16/16 at 08:00 Artificial Tears (Tears Naturale Opth Soln) 1 drop Q4H PRN EACH EYE DRY EYE Last administered on 11/17/16 22:20; Start 11/17/16 at 12:00 Mupirocin (Bactroban 2% Oint) 1 applic Q12HR TOPICAL Last administered on 08:04; Start 11/17/16 at 11:30 Urinary Catheter: No Vascular Central Line Catheter: No A/P Problem List: (1) COPD with exacerbation ICD Code: J44.1 - Chronic obstructive pulmonary disease with (acute) exacerbation Status: Acute (2) Left leg weakness ICD Code: M62.81 - Muscle weakness (generalized) Status: Acute (3) Left leg pain ICD Code: M79.605 - Pain in left leg Status: Acute (4) Hypoxia ICD Code: R09.02 - Hypoxemia Status: Acute (5) Tobacco abuse ICD Code: Z72.0 - Tobacco use Status: Acute (6) Respiratory failure ICD Code: J96.90 - Respiratory failure, unspecified, unspecified whether with hypoxia or hypercapnia Status: Acute Assessment and Plan 61 y/o male with a history of COPD, HTN, CVA with left sided weakness, Anemia, anxiety, depression, CAD and hypothyroid presented to the ED with complaints of dyspnea and cough for the last few days. COPD exacerbation, patient is not on O2 at home Chest x ray reviewed and is unremarkable -Solumedrol IV -Duonebs scheduled and prn -Levaquin IV Daily- possible early pneumonia in copd pt, with xray lagging behind -Morphine IV for pain management -Sputum culture ordered MUCINEX IS NEEDS WALK TEST TO DETERMINE NEED FOR OXYGEN Other chronic medical conditions anemia, hypothyroid HOME MEDS, and anxiety HOME MEDS TOBACCO ABUSE SMOKING CESSATION ANXIETY- HOME MEDS INSOMNIA- MEDS FOR SLEEP CONSTIPATION PROTOCOL DVT prophylaxis: Lovenox, SCDs DRY EYES ARTIFICIAL TEARS NEEDS FULL ADMIT WILL NOT IMPROVE FAST ENOUGH NEEDS SNF IF AGREEABLE JORY RN AND PATIENT AND CASE MANAGEMENT Cortez Parks DO Nov 18, 2016 15:00
[2016-11-18] MEDS: LEVOFLOXACIN 750 MG PREMIX INJ 150 ML IV SCH (20:55)
[2016-11-18] MEDS: ENOXAPARIN SODIUM 40 MG/0.4 ML SYRINGE SQ SCH ×2 (20:56→21:00)
[2016-11-18] MEDS: risperiDONE 0.5 MG TAB PO SCH (20:56)
[2016-11-19] VITALS (7 sets, daily range): BP systolic 140–180; BP diastolic 67–96; PULSE 74–90; RESP 18; TEMP 97.6–99; O2SAT 92–97
[2016-11-19] MEDS: methylPREDNISolone SOD SUCC 125 MG/2 ML VIAL IVP SCH ×4 (02:47→21:16)
[2016-11-19] MEDS: ALPRAZolam 1 MG TAB PO PRN ×3 (02:47→21:16)
[2016-11-19] MEDS: BACLOFEN 10 MG TAB PO PRN ×3 (02:47→21:16)
[2016-11-19 05:26] LABS: AUTOMATED NEUTROPHIL # 14.5 TH/MM3 (1.8-7.7); BASOPHIL % 0.1 % (0.0-2.0); LYMPH % 6.3 % (9.0-44.0); LYMPHOCYTE # 1.1 TH/MM3 (1.0-4.8); MEAN CELL VOLUME 91.2 FL (80.0-100.0); MEAN CORPUSCULAR HEMOGLOBIN 29.7 PG (27.0-34.0); MEAN CORPUSCULAR HGB CONC 32.6 % (32.0-36.0); MONO % 6.8 % (0.0-8.0); NEUT % 86.8 % (16.0-70.0); PLATELET COUNT 194 TH/MM3 (150-450); RED BLOOD COUNT 4.39 MIL/MM3 (4.50-5.90); RED CELL DISTRIBUTION WIDTH 13.5 % (11.6-17.2); WHITE BLOOD COUNT 16.7 TH/MM3 (4.0-11.0)
[2016-11-19 05:29] LABS: HEMO FLAGS AUTO DIFF
[2016-11-19 05:34] LABS: ALT (GPT) 30 U/L (12-78); ANION GAP 9 MEQ/L (5-15); AST (GOT) 22 U/L (15-37); BICARBONATE 26.6 MEQ/L (21.0-32.0); BLOOD UREA NITROGEN 18 MG/DL (7-18); CHLORIDE 106 MEQ/L (98-107); MAGNESIUM 2.2 MG/DL (1.5-2.5); POTASSIUM 3.5 MEQ/L (3.5-5.1); SODIUM (NA) 142 MEQ/L (136-145)
[2016-11-19 05:37] LABS: ALKALINE PHOSPHATASE 74 U/L (45-117); GLOMERULAR FILTRATION RATE 92 ML/MIN (>89); TOTAL BILIRUBIN ADULT 0.4 MG/DL (0.2-1.0)
[2016-11-19] MEDS: LEVOTHYROXINE SODIUM 50 MCG TAB PO SCH (06:16)
[2016-11-19] MEDS: INSULIN ASPART SUPPLEMENTAL SCALE SQ SCH ×4 (06:29→21:17)
[2016-11-19 06:57] LABS: PLATELET ESTIMATE SMEAR NORMAL (NORMAL); PLATELET MORPHOLOGY NORMAL (NORMAL); SCAN/DIFF AUTO DIFF CONFIRMED
[2016-11-19] MEDS: LACTOBACILLUS ACIDOPHILUS TAB PO SCH ×3 (07:28→17:56)
[2016-11-19] MEDS: GABAPENTIN 100 MG CAP PO SCH ×3 (07:29→17:56)
[2016-11-19] MEDS: guaiFENesin E.R. 600 MG TAB PO SCH ×2 (07:29→21:16)
[2016-11-19] MEDS: DOCUSATE SODIUM 100 MG CAP PO SCH ×2 (07:30→21:15)
[2016-11-19] MEDS: FERROUS SULFATE 325 MG (65 MG ELEMENTAL IRON) TAB PO SCH (07:30)
[2016-11-19] MEDS: PANTOPRAZOLE SOD 40 MG DELAYED RELEASE TAB PO SCH (07:30)
[2016-11-19] MEDS: FOLIC ACID 1 MG TAB PO SCH (07:30)
[2016-11-19] MEDS: DOCUSATE SODIUM 50 MG/SENNA 8.6 MG TAB PO SCH ×2 (07:30→21:15)
[2016-11-19] MEDS: DILTIAZEM HCL 30 MG TAB PO SCH (07:31)
[2016-11-19] MEDS: MUPIROCIN 2% OINT 22 GM TUBE TOPICAL SCH ×2 (07:33→21:24)
[2016-11-19] MEDS: SODIUM CHLORIDE 0.9% FLUSH 10 ML FLUSH IV FLUSH SCH ×2 (07:34→21:17)
[2016-11-19] MEDS: POLYETHYLENE GLYCOL 17 GM PKG PO SCH (07:35)
[2016-11-19] MEDS: BENZOCAINE 6 MG/MENTHOL 10 MG LOZENGE BUCCAL PRN (08:08)
--- NOTE | 2016-11-19 12:10 | HHI.PR ---
Subjective Remarks 61 y/o male with a history of COPD, HTN, CVA with left sided weakness, Anemia, anxiety, depression, CAD and hypothyroid presented to the ED with complaints of dyspnea and cough. He states he has had this cough for the last 4 days and has been short of breath with it, and is worse in the morning. Patient states he did have a fever but does not know how high. He does have a productive cough with yellow brown sputum. He denies any associated chest pain, nausea, vomiting , diarrhea, dysuria or headaches. He does continue to smoke but does want to quit. 11-15 he remains very short of breath needing oxygen. Patient is very congested coughing up not able to do much activity without becoming short of breath. Will not be ready for discharge in the next day to be made a full admission. May need to go to a [place] [facility] facility at discharge. At this time is requiring oxygen and if things don't improve he will need oxygen at home Needs to use the incentive spirometry. Wants to quit smoking. Wants treatment VERY anxious States he sometimes has diarrhea we'll place on Lactinex 11-16 complains of sore throat and now constipation also states needs something to relax him through the day and at night will adjust meds dw RN AND PT 11-17 still sob wants dry eye medications and Bactroban to bl feet 11-18 NEEDS A WALK TEST TO SEE IF NEED FOR OXYGEN WILL NEED SNF AT [facility] IF AGREEABLE DW RN AND PT AND CM CONTINUE SAME AM LABS 11-19 still on and off oxygen walking with pt PASSED WALK TEST- DOES NOT QUALIFY FOR OXYGEN MONITOR 24-48 HOURS THEN DC TO HOME WITH [facility] IF ABLE TO GET Objective Vitals Vital Signs Date Time Temp Pulse Resp B/P (MAP) Pulse Ox O2 Delivery O2 Flow Rate FiO2 11/19/16 04:40 97.6 85 18 147/69 (95) 93 11/19/16 00:21 98.5 90 18 140/67 (91) 93 11/18/16 20:32 95 Nasal Cannula 3.00 11/18/16 20:30 98.5 106 19 171/71 (104) 93 11/18/16 16:50 98.5 81 20 172/72 (105) 93 I/O 11/18/16 11/18/16 11/18/16 11/19/16 11/19/16 11/19/16 07:00 15:00 23:00 07:00 15:00 23:00 Intake Total 240 ml 600 ml 360 ml 360 ml Output Total 800 ml 400 ml 850 ml Balance -560 ml 600 ml -40 ml -490 ml Intake Oral 240 ml 600 ml 360 ml 360 ml Output Urine Total 800 ml 400 ml 850 ml # Voids 3 # Bowel Movements 0 2 0 0 Result Diagram: 11/19/16 0417 11/19/16 0417 Other Results Laboratory Tests Test 11/17/16 09:04 11/18/16 03:28 11/19/16 04:17 White Blood Count 15.8 TH/MM3 13.1 TH/MM3 16.7 TH/MM3 Red Blood Count 4.54 MIL/MM3 4.23 MIL/MM3 4.39 MIL/MM3 Hemoglobin 13.8 GM/DL 12.7 GM/DL 13.0 GM/DL Hematocrit 41.5 % 39.0 % 40.0 % Mean Corpuscular Volume 91.4 FL 92.2 FL 91.2 FL Mean Corpuscular Hemoglobin 30.5 PG 30.1 PG 29.7 PG Mean Corpuscular Hemoglobin Concent 33.4 % 32.6 % 32.6 % Red Cell Distribution Width 13.8 % 13.6 % 13.5 % Platelet Count 193 TH/MM3 190 TH/MM3 194 TH/MM3 Mean Platelet Volume 13.4 FL 13.9 FL 13.4 FL Neutrophils (%) (Auto) 87.2 % 85.9 % 86.8 % Lymphocytes (%) (Auto) 6.3 % 6.5 % 6.3 % Monocytes (%) (Auto) 6.3 % 7.5 % 6.8 % Eosinophils (%) (Auto) 0.1 % 0.0 % 0.0 % Basophils (%) (Auto) 0.1 % 0.1 % 0.1 % Neutrophils # (Auto) 13.8 TH/MM3 11.3 TH/MM3 14.5 TH/MM3 Lymphocytes # (Auto) 1.0 TH/MM3 0.9 TH/MM3 1.1 TH/MM3 Monocytes # (Auto) 1.0 TH/MM3 1.0 TH/MM3 1.1 TH/MM3 Eosinophils # (Auto) 0.0 TH/MM3 0.0 TH/MM3 0.0 TH/MM3 Basophils # (Auto) 0.0 TH/MM3 0.0 TH/MM3 0.0 TH/MM3 CBC Comment AUTO DIFF AUTO DIFF AUTO DIFF Differential Comment AUTO DIFF CONFIRMED FINAL DIFF MANUAL AUTO DIFF CONFIRMED Platelet Estimate NORMAL NORMAL NORMAL Platelet Morphology Comment ENLARGED ENLARGED NORMAL Red Cell Morphology Comment NORMAL NORMAL NORMAL Blood Urea Nitrogen 18 MG/DL 16 MG/DL 18 MG/DL Creatinine 0.81 MG/DL 0.82 MG/DL 0.84 MG/DL Random Glucose 138 MG/DL 168 MG/DL 142 MG/DL Total Protein 7.8 GM/DL 6.9 GM/DL 6.8 GM/DL Albumin 3.9 GM/DL 3.4 GM/DL 3.3 GM/DL Calcium Level 9.2 MG/DL 8.9 MG/DL 8.8 MG/DL Phosphorus Level 2.8 MG/DL 3.2 MG/DL 3.5 MG/DL Magnesium Level 2.5 MG/DL 2.3 MG/DL 2.2 MG/DL Alkaline Phosphatase 82 U/L 71 U/L 74 U/L Aspartate Amino Transf (AST/SGOT) 29 U/L 24 U/L 22 U/L Alanine Aminotransferase (ALT/SGPT) 28 U/L 27 U/L 30 U/L Total Bilirubin 0.4 MG/DL 0.3 MG/DL 0.4 MG/DL Sodium Level 137 MEQ/L 140 MEQ/L 142 MEQ/L Potassium Level 3.8 MEQ/L 3.6 MEQ/L 3.5 MEQ/L Chloride Level 103 MEQ/L 106 MEQ/L 106 MEQ/L Carbon Dioxide Level 28.3 MEQ/L 23.7 MEQ/L 26.6 MEQ/L Anion Gap 6 MEQ/L 10 MEQ/L 9 MEQ/L Estimat Glomerular Filtration Rate 96 ML/MIN 95 ML/MIN 92 ML/MIN Differential Total Cells Counted 100 Neutrophils % (Manual) 82 % Band Neutrophils % 1 % Lymphocytes % 8 % Monocytes % 8 % Neutrophils # (Manual) 11.0 TH/MM3 Myelocytes 1 % Imaging Last Impressions Chest X-Ray 11/14/16 1422 Signed Impressions: Service Date/Time: Monday, November 14, 2016 14:36 - CONCLUSION: No acute disease. Cortez Frazier MD FACR Objective Remarks GENERAL: This is a NOT SO well-nourished, well-developed patient, in MILD apparent distress. Has chronic left-sided weakness with chronic left-sided facial droop SKIN: No rashes, ecchymoses or lesions. Cool and dry. HEAD: Atraumatic. Normocephalic. EYES: Pupils equal round and reactive. Extraocular muscles appear grossly intact ENT: Nose without bleeding, purulent drainage or septal hematoma. Airway patent. Tongue midline NECK: Trachea midline. No JVD or lymphadenopathy. Supple, nontender, no meningeal signs. CARDIOVASCULAR: Regular rate and rhythm without murmurs, gallops, or rubs. S1 and S2 no S3 or S4 no heave or thrill or rub or gallop RESPIRATORY: Coarse breath sounds bilaterally Breath sounds equal bilaterally. Rhonchi and wheezes throughout bilaterally SLOW IMPROVEMENT GASTROINTESTINAL: Abdomen soft, non-tender, nondistended. No hepato-splenomegaly , or palpable masses. No guarding. MUSCULOSKELETAL: Extremities without clubbing, cyanosis, or edema. No joint tenderness, effusion, or edema noted. No calf tenderness. Motor strength 4.5 out of 5 on the right and 3.5-4 out of 5 on the left NEUROLOGICAL: Awake and alert. Motor and sensory grossly within normal limits. Left sided weakness. Normal speech. Insight and judgment are fair mood and behavior is somewhat appropriate Medications and IVs Current Medications Methylprednisolone Sodium Succinate (SoluMEDROL INJ) 125 mg ONCE ONCE IVP Last administered on 11/14/16 14:50; Start 11/14/16 at 14:30; Stop 11/14/16 at 14:33; Status DC Albuterol Sulfate (Albuterol Neb) 2.5 mg Q15M INH Last administered on 14:42; Start 11/14/16 at 14:30; Stop 11/14/16 at 14:46; Status DC Sodium Chloride (NS Flush) 2 ml UNSCH PRN IVF FLUSH AFTER USING IV ACCESS; Start 11/14/16 at 14:30; Stop 11/14/16 at 19:33; Status DC Azithromycin 500 mg/Sodium Chloride 250 ml @ 250 mls/hr ONCE ONCE IV Last administered on 11/14/16 17:04; Start 11/14/16 at 16:30; Stop 11/14/16 at 17:29 ; Status DC Albuterol Sulfate (Albuterol Neb) 2.5 mg Q15M INH Last administered on 17:42; Start 11/14/16 at 16:30; Stop 11/14/16 at 16:46; Status DC Dextrose (D50w (Vial) Inj) 50 ml UNSCH PRN IV HYPOGLYCEMIA-SEE COMMENTS; Start 11/14/16 at 19:30 Glucagon (Glucagon Inj) 1 mg UNSCH PRN OTHER HYPOGLYCEMIA-SEE COMMENTS; Start 11/14/16 at 19:30 Insulin Aspart (NovoLOG SUPPLEMENTAL SCALE) 1 ACHS SLIDING SCALE SQ Last administered on 11/18/16 21:00; Start 11/14/16 at 21:00 Albuterol Sulfate (Proair Hfa Inh) 2 puff QID PRN INH SHORTNESS OF BREATH; Start 11/14/16 at 19:30; Stop 11/14/16 at 19:38; Status DC Alprazolam (Xanax) 1 mg TID PRN PO ANXIETY Last administered on 11/19/16 11:10 ; Start 11/14/16 at 19:30 Baclofen (Lioresal) 10 mg TID PRN PO MUSCLE SPASM Last administered on 11:10; Start 11/14/16 at 19:30 Diltiazem HCl (Cardizem) 30 mg DAILY PO Last administered on 11/19/16 07:31; Start 11/15/16 at 09:00 Ferrous Sulfate (Ferrous Sulfate) 325 mg DAILY PO Last administered on 07:30; Start 11/15/16 at 09:00 Folic Acid (Folate) 1 mg DAILY PO Last administered on 11/19/16 07:30; Start 11/15/16 at 09:00 Gabapentin (Neurontin) 100 mg TID PO Last administered on 11/19/16 07:29; Start 11/15/16 at 09:00 Ipratropium Gallina (Atrovent Hfa Inh) 2 puff QID INH ; Start 11/14/16 at 21:00 ; Stop 11/14/16 at 21:00; Status DC Levothyroxine Sodium (Synthroid) 50 mcg DAILY@06 PO Last administered on 06:16; Start 11/15/16 at 06:00 Pantoprazole Sodium (Protonix) 40 mg DAILY PO Last administered on 11/19/16 07 :30; Start 11/15/16 at 09:00 Risperidone (risperDAL) 0.5 mg HS PO Last administered on 11/18/16 20:56; Start 11/14/16 at 21:00 Tramadol HCl (Ultram) 50 mg Q4H PRN PO PAIN 3-5 Last administered on 11/16/16 04:21; Start 11/14/16 at 19:30 Sodium Chloride (NS Flush) 2 ml UNSCH PRN IV FLUSH FLUSH AFTER USING IV ACCESS ; Start 11/14/16 at 19:30; Stop 11/14/16 at 19:30; Status DC Sodium Chloride (NS Flush) 2 ml BID IV FLUSH ; Start 11/14/16 at 21:00; Stop at 21:00; Status DC Acetaminophen (Tylenol) 650 mg Q4H PRN PO TEMP > 100.4; Start 11/14/16 at 19:30 Ondansetron HCl (Zofran Inj) 4 mg Q6H PRN IVP NAUSEA OR VOMITING; Start at 19:30 Prochlorperazine (Compazine Supp) 25 mg Q12H PRN CO NAUSEA OR VOMITING; Start 11/14/16 at 19:30; Stop 11/14/16 at 19:40; Status DC Enoxaparin Sodium (Lovenox Inj) 40 mg Q24H SQ Last administered on 11/15/16 21 :57; Start 11/14/16 at 21:00 Acetaminophen (Tylenol) 650 mg Q6H PRN PO PAIN SCALE 1 TO 2; Start 11/14/16 at 19:30 Morphine Sulfate (Morphine Inj) 2 mg Q3H PRN IV Pain 3-5; if unable to take PO ; Start 11/14/16 at 19:30 Morphine Sulfate (Morphine Inj) 4 mg Q3H PRN IV Pain 6-10;if unable to take PO ; Start 11/14/16 at 19:30 Naloxone HCl (Narcan Inj) 0.4 mg UNSCH PRN IV SEE LABEL COMMENTS; Start at 19:30 Senna/Docusate Sodium (Elysia-Colace) 1 tab BID PO Last administered on 20:27; Start 11/14/16 at 21:00; Stop 11/16/16 at 08:21; Status DC Magnesium Hydroxide (Milk Of Magnesia Liq) 30 ml Q12H PRN PO MILD - MODERATE CONSTIPATION; Start 11/14/16 at 19:30; Stop 11/16/16 at 08:13; Status DC Sennosides (Senokot) 17.2 mg Q12H PRN PO MODERATE - SEVERE CONSTIPATION; Start 11/14/16 at 19:30 Bisacodyl (Dulcolax Supp) 10 mg DAILY PRN RECTAL SEVERE CONSITIPATION; Start at 19:30; Stop 11/16/16 at 08:14; Status DC Lactulose (Lactulose Liq) 30 ml DAILY PRN PO SEVERE CONSITIPATION; Start at 19:30 Sodium Chloride (NS Flush) 2 ml BID IV FLUSH Last administered on 11/19/16 07: 34; Start 11/14/16 at 21:00 Sodium Chloride (NS Flush) 2 ml UNSCH PRN IV FLUSH FLUSH AFTER USING IV ACCESS Last administered on 11/18/16 14:33; Start 11/14/16 at 19:30 Albuterol/ Ipratropium (Duoneb Neb) 1 ampule Q4HR NEB INH Last administered on 11/18/16 20:00; Start 11/14/16 at 20:00; Stop 11/18/16 at 20:00; Status DC Albuterol Sulfate (Albuterol Neb) 2.5 mg Q2HR NEB PRN INH SHORTNESS OF BREATH; Start 11/14/16 at 19:30 Budesonide/ Formoterol Fumarate (Symbicort 160-4.5 Inh) 2 puff Q12HR INH ; Start 11/14/16 at 21:00; Stop 11/14/16 at 21:00; Status DC Methylprednisolone Sodium Succinate (SoluMEDROL INJ) 60 mg Q6H IVP Last administered on 11/19/16 07:32; Start 11/14/16 at 20:00 Ceftriaxone Sodium 1000 mg/ Sodium Chloride 100 ml @ 200 mls/hr Q24H IV ; Start 11/15/16 at 20:00; Stop 11/15/16 at 20:00; Status DC Nicotine (Habitrol 21 Mg Patch.24 Hr) 1 patch DAILY TD ; Start 11/15/16 at 09:00 ; Stop 11/16/16 at 17:09; Status DC Azithromycin 500 mg/Sodium Chloride 250 ml @ 250 mls/hr Q24H IV ; Start at 17:00; Stop 11/15/16 at 17:00; Status DC Levofloxacin/ Dextrose 150 ml @ 100 mls/hr Q24H IV Last administered on 20:55; Start 11/14/16 at 22:00 Lactobacillus Acidophilus (Lactinex) 1 tab TID PO Last administered on 07:28; Start 11/15/16 at 14:00 Guaifenesin (Mucinex Er) 600 mg BID PO Last administered on 11/19/16 07:29; Start 11/15/16 at 13:00 Benzocaine/Menthol (Chloraseptic Lamin) 1 lozenge UNSCH PRN BUCCAL SORE THROAT Last administered on 11/19/16 08:08; Start 11/16/16 at 08:00 Zolpidem Tartrate (Ambien) 5 mg HS PRN PO INSOMNIA; Start 11/16/16 at 08:00 Docusate Sodium (Colace) 100 mg BID PO Last administered on 11/19/16 07:30; Start 11/16/16 at 09:00 Senna/Docusate Sodium (Elysia-Colace) 2 tab BID PO Last administered on 07:30; Start 11/16/16 at 09:00 Polyethylene Glycol (Miralax) 17 gm DAILY PO Last administered on 11/16/16 08: 40; Start 11/16/16 at 09:00 Bisacodyl (Dulcolax Supp) 10 mg DAILY PRN RECTAL MODTO SEVERE CONSTIPATION; Start 11/16/16 at 08:00 Magnesium Hydroxide (Milk Of Magnesia Liq) 30 ml Q6H PRN PO MILD TO MODERATE CONSTIPATION; Start 11/16/16 at 08:00 Artificial Tears (Tears Naturale Opth Soln) 1 drop Q4H PRN EACH EYE DRY EYE Last administered on 11/17/16 22:20; Start 11/17/16 at 12:00 Mupirocin (Bactroban 2% Oint) 1 applic Q12HR TOPICAL Last administered on 07:33; Start 11/17/16 at 11:30 Urinary Catheter: No Vascular Central Line Catheter: No A/P Problem List: (1) COPD with exacerbation ICD Code: J44.1 - Chronic obstructive pulmonary disease with (acute) exacerbation Status: Acute (2) Left leg weakness ICD Code: M62.81 - Muscle weakness (generalized) Status: Acute (3) Left leg pain ICD Code: M79.605 - Pain in left leg Status: Acute (4) Hypoxia ICD Code: R09.02 - Hypoxemia Status: Acute (5) Tobacco abuse ICD Code: Z72.0 - Tobacco use Status: Acute (6) Respiratory failure ICD Code: J96.90 - Respiratory failure, unspecified, unspecified whether with hypoxia or hypercapnia Status: Acute Assessment and Plan 61 y/o male with a history of COPD, HTN, CVA with left sided weakness, Anemia, anxiety, depression, CAD and hypothyroid presented to the ED with complaints of dyspnea and cough for the last few days. COPD exacerbation, patient is not on O2 at home Chest x ray reviewed and is unremarkable -Solumedrol IV -Duonebs scheduled and prn -Levaquin IV Daily- possible early pneumonia in copd pt, with xray lagging behind -Morphine IV for pain management -Sputum culture ordered MUCINEX IS NEEDS WALK TEST TO DETERMINE NEED FOR OXYGEN- PASSED THIS SURPRISINGLY Other chronic medical conditions anemia, hypothyroid HOME MEDS, and anxiety HOME MEDS TOBACCO ABUSE SMOKING CESSATION ANXIETY- HOME MEDS INSOMNIA- MEDS FOR SLEEP CONSTIPATION PROTOCOL DVT prophylaxis: Lovenox, SCDs DRY EYES ARTIFICIAL TEARS NEEDS FULL ADMIT WILL NOT IMPROVE FAST ENOUGH NEEDS SNF IF AGREEABLE JORY RN AND PATIENT AND CASE MANAGEMENT DC IN NEXT 24 TO 48 HOURS WITH [facility] IF ABLE TO GET LIVES ALONE IN A [facility] WITH 4 TOTAL OUTLETS Cortez Parks DO Nov 19, 2016 12:10
[2016-11-19] MEDS: ENOXAPARIN SODIUM 40 MG/0.4 ML SYRINGE SQ SCH (21:15)
[2016-11-19] MEDS: risperiDONE 0.5 MG TAB PO SCH (21:16)
[2016-11-19] MEDS: LEVOFLOXACIN 750 MG PREMIX INJ 150 ML IV SCH (21:22)
[2016-11-20 00:20] VITALS: BP 157/73; PULSE 79; RESP 18; TEMP 98.7; O2SAT 96
[2016-11-20] MEDS: methylPREDNISolone SOD SUCC 125 MG/2 ML VIAL IVP SCH ×3 (02:55→14:27)
[2016-11-20 04:25] VITALS: BP 137/73; PULSE 75; RESP 18; TEMP 98.2; O2SAT 95
[2016-11-20] MEDS: ALPRAZolam 1 MG TAB PO PRN ×2 (06:08→14:26)
[2016-11-20] MEDS: BACLOFEN 10 MG TAB PO PRN ×2 (06:08→14:26)
[2016-11-20] MEDS: LEVOTHYROXINE SODIUM 50 MCG TAB PO SCH (06:09)
[2016-11-20] MEDS: INSULIN ASPART SUPPLEMENTAL SCALE SQ SCH ×3 (06:12→16:00)
[2016-11-20 08:00] VITALS: BP 147/78; PULSE 69; RESP 20; TEMP 98.5; O2SAT 95
[2016-11-20 08:01] LABS: AUTOMATED NEUTROPHIL # 17.7 TH/MM3 (1.8-7.7); BASOPHIL % 0.1 % (0.0-2.0); EOSINOPHIL % 0.1 % (0.0-4.0); HEMATOCRIT 40.8 % (39.0-51.0); LYMPHOCYTE # 1.2 TH/MM3 (1.0-4.8); MEAN CELL VOLUME 90.1 FL (80.0-100.0); MEAN CORPUSCULAR HEMOGLOBIN 29.6 PG (27.0-34.0); MEAN CORPUSCULAR HGB CONC 32.8 % (32.0-36.0); MONO % 5.1 % (0.0-8.0); NEUT % 88.7 % (16.0-70.0); PLATELET COUNT 216 TH/MM3 (150-450); RED BLOOD COUNT 4.53 MIL/MM3 (4.50-5.90); RED CELL DISTRIBUTION WIDTH 13.6 % (11.6-17.2); WHITE BLOOD COUNT 19.9 TH/MM3 (4.0-11.0)
[2016-11-20 08:03] LABS: HEMO FLAGS AUTO DIFF
[2016-11-20 08:13] LABS: ALT (GPT) 29 U/L (12-78); ANION GAP 11 MEQ/L (5-15); AST (GOT) 22 U/L (15-37); BICARBONATE 24.8 MEQ/L (21.0-32.0); BLOOD UREA NITROGEN 21 MG/DL (7-18); CHLORIDE 104 MEQ/L (98-107); GLOMERULAR FILTRATION RATE 94 ML/MIN (>89); MAGNESIUM 2.3 MG/DL (1.5-2.5); POTASSIUM 3.5 MEQ/L (3.5-5.1); SODIUM (NA) 140 MEQ/L (136-145)
[2016-11-20 08:16] LABS: ALKALINE PHOSPHATASE 74 U/L (45-117); TOTAL BILIRUBIN ADULT 0.4 MG/DL (0.2-1.0)
[2016-11-20] MEDS: DOCUSATE SODIUM 100 MG CAP PO SCH (08:28)
[2016-11-20] MEDS: DILTIAZEM HCL 30 MG TAB PO SCH (08:28)
[2016-11-20] MEDS: PANTOPRAZOLE SOD 40 MG DELAYED RELEASE TAB PO SCH (08:28)
[2016-11-20] MEDS: GABAPENTIN 100 MG CAP PO SCH ×3 (08:28→17:38)
[2016-11-20] MEDS: FERROUS SULFATE 325 MG (65 MG ELEMENTAL IRON) TAB PO SCH (08:28)
[2016-11-20] MEDS: FOLIC ACID 1 MG TAB PO SCH (08:28)
[2016-11-20] MEDS: DOCUSATE SODIUM 50 MG/SENNA 8.6 MG TAB PO SCH (08:28)
[2016-11-20] MEDS: LACTOBACILLUS ACIDOPHILUS TAB PO SCH ×3 (08:28→17:38)
[2016-11-20] MEDS: guaiFENesin E.R. 600 MG TAB PO SCH (08:29)
[2016-11-20] MEDS: BENZOCAINE 6 MG/MENTHOL 10 MG LOZENGE BUCCAL PRN (08:29)
[2016-11-20] MEDS: SODIUM CHLORIDE 0.9% FLUSH 10 ML FLUSH IV FLUSH SCH (08:30)
[2016-11-20] MEDS: POLYETHYLENE GLYCOL 17 GM PKG PO SCH (08:30)
[2016-11-20] MEDS: MUPIROCIN 2% OINT 22 GM TUBE TOPICAL SCH (08:31)
[2016-11-20 08:48] LABS: PLATELET ESTIMATE SMEAR NORMAL (NORMAL); PLATELET MORPHOLOGY NORMAL (NORMAL); SCAN/DIFF AUTO DIFF CONFIRMED
[2016-11-20] MEDS ORDERED: LEVO750T3 PO (11:58)
[2016-11-20] MEDS ORDERED: PRED20 PO (11:58)
--- NOTE | 2016-11-20 11:59 | HHI.FF ---
Face to Face Verification Diagnosis: (1) COPD with exacerbation (2) Respiratory failure (3) Tobacco abuse (4) Hypoxia (5) Left leg pain (6) Left leg weakness Physical Therapy Order: Evaluate and Treat, Improve ambulation, Strength and gait training Home Health Nursing Order: Medical education Signs/symptoms of disease process Nursing assessment with vital signs I have seen patient All Lockwood on 11/20/16. My clinical findings support the need for the requested home health care services because: Ltd mobility - disease progression Patient has SOB I certify that my clinical findings support that this patient is homebound because: Hx COPD- exertion dyspnea/weakness Unsteady gait/balance Daryl Cross MD Nov 20, 2016 11:59
--- NOTE | 2016-11-20 12:00 | HHI.DS ---
Discharge Summary Admission Date Nov 15, 2016 at 12:35 Discharge Date: Nov 20, 2016 Admitting Diagnosis COPD exacerbation (1) COPD with exacerbation ICD Code: J44.1 - Chronic obstructive pulmonary disease with (acute) exacerbation Status: Acute (2) Left leg weakness ICD Code: M62.81 - Muscle weakness (generalized) Status: Acute (3) Left leg pain ICD Code: M79.605 - Pain in left leg Status: Acute (4) Hypoxia ICD Code: R09.02 - Hypoxemia Status: Acute (5) Tobacco abuse ICD Code: Z72.0 - Tobacco use Status: Acute (6) Respiratory failure ICD Code: J96.90 - Respiratory failure, unspecified, unspecified whether with hypoxia or hypercapnia Status: Acute Procedures None Brief History - From Admission History of present illness from the admitting physician 61 y/o male with a history of COPD, HTN, CVA with left sided weakness, Anemia, anxiety, depression, CAD and hypothyroid presented to the ED with complaints of dyspnea and cough. He states he has had this cough for the last 4 days and has been short of breath with it, and is worse in the morning. Patient states he did have a fever but does not know how high. He does have a productive cough with yellow brown sputum. He denies any associated chest pain, nausea, vomiting , diarrhea, dysuria or headaches. He does continue to smoke but does want to quit. CBC/BMP: 11/20/16 0716 11/20/16 0716 Significant Findings Laboratory Tests Test 11/18/16 03:28 11/19/16 04:17 11/20/16 07:16 White Blood Count 13.1 TH/MM3 (4.0-11.0) 16.7 TH/MM3 (4.0-11.0) 19.9 TH/MM3 (4.0-11.0) Red Blood Count 4.23 MIL/MM3 (4.50-5.90) 4.39 MIL/MM3 (4.50-5.90) Hemoglobin 12.7 GM/DL (13.0-17.0) Mean Platelet Volume 13.9 FL (7.0-11.0) 13.4 FL (7.0-11.0) 13.4 FL (7.0-11.0) Neutrophils (%) (Auto) 85.9 % (16.0-70.0) 86.8 % (16.0-70.0) 88.7 % (16.0-70.0) Lymphocytes (%) (Auto) 6.5 % (9.0-44.0) 6.3 % (9.0-44.0) 6.0 % (9.0-44.0) Neutrophils # (Auto) 11.3 TH/MM3 (1.8-7.7) 14.5 TH/MM3 (1.8-7.7) 17.7 TH/MM3 (1.8-7.7) Lymphocytes # (Auto) 0.9 TH/MM3 (1.0-4.8) Monocytes # (Auto) 1.0 TH/MM3 (0-0.9) 1.1 TH/MM3 (0-0.9) 1.0 TH/MM3 (0-0.9) Neutrophils % (Manual) 82 % (16-70) Lymphocytes % 8 % (9-44) Neutrophils # (Manual) 11.0 TH/MM3 (1.8-7.7) Myelocytes 1 % (0-0) Platelet Morphology Comment ENLARGED (NORMAL) Random Glucose 168 MG/DL (74-106) 142 MG/DL (74-106) 138 MG/DL (74-106) Albumin 3.3 GM/DL (3.4-5.0) 3.3 GM/DL (3.4-5.0) Blood Urea Nitrogen 21 MG/DL (7-18) Imaging Last Impressions Chest X-Ray 11/14/16 1422 Signed Impressions: Service Date/Time: Monday, November 14, 2016 14:36 - CONCLUSION: No acute disease. Cortez Frazier MD FACR PE at Discharge GENERAL: This is a NOT SO well-nourished, well-developed patient, in MILD apparent distress. Has chronic left-sided weakness with chronic left-sided facial droop SKIN: No rashes, ecchymoses or lesions. Cool and dry. HEAD: Atraumatic. Normocephalic. EYES: Pupils equal round and reactive. Extraocular muscles appear grossly intact ENT: Nose without bleeding, purulent drainage or septal hematoma. Airway patent. Tongue midline NECK: Trachea midline. No JVD or lymphadenopathy. Supple, nontender, no meningeal signs. CARDIOVASCULAR: Regular rate and rhythm without murmurs, gallops, or rubs. S1 and S2 no S3 or S4 no heave or thrill or rub or gallop RESPIRATORY: Coarse breath sounds bilaterally Breath sounds equal bilaterally. Rhonchi and wheezes throughout bilaterally SLOW IMPROVEMENT GASTROINTESTINAL: Abdomen soft, non-tender, nondistended. No hepato-splenomegaly , or palpable masses. No guarding. MUSCULOSKELETAL: Extremities without clubbing, cyanosis, or edema. No joint tenderness, effusion, or edema noted. No calf tenderness. Motor strength 4.5 out of 5 on the right and 3.5-4 out of 5 on the left NEUROLOGICAL: Awake and alert. Motor and sensory grossly within normal limits. Left sided weakness. Normal speech. Insight and judgment are fair mood and behavior is somewhat appropriate Pt update on day of discharge Patient reports is feeling much better. Breathing is close to baseline. He feels comfortable going home. Hospital Course 61 y/o male with a history of COPD, HTN, CVA with left sided weakness, Anemia, anxiety, depression, CAD and hypothyroid presented to the ED with complaints of dyspnea and cough for the last few days. Evaluation and treatment course detailed below: COPD exacerbation, patient is not on O2 at home Chest x ray reviewed and is unremarkable. Patient treated with Solu-Medrol, breathing treatment, and Levaquin for probable early pneumonia. Patient symptoms improved. He is discharged on a prednisone taper and Levaquin to complete the course of treatment. Patient advised to follow-up outpatient with pulmonology. Patient's chronic medical conditions include hypothyroidism, anxiety, for which his home medications were continued. He was strongly counseled to stop smoking tobacco. Pt Condition on Discharge: Stable Discharge Disposition: Disch w/ Home Health Serv Discharge Time: > 30 minutes Discharge Instructions DIET: Follow Instructions for: Heart Healthy Diet Activities you can perform: Regular-No Restrictions Follow up Referrals: PCP Follow-up SNF/[facility]AMILET/HH with [facility] Home New Medications: Levofloxacin (Levofloxacin) 750 Mg Tablet 750 MG PO DAILY for Infection, #6 TAB 0 Refills Prednisone (Prednisone) 20 Mg Tab 20 MG PO DIRECTED, #24 TAB 0 Refills Take 60 MG daily x 4 days, then 40 MG x 4 days, then 20 MG daily x 4 days. Continued Medications: Albuterol 8.5 GM Inh (Proair Hfa 8.5 GM Inh) 90 Mcg/Act Aer 2 PUFF INH QID PRN for SHORTNESS OF BREATH, #1 INHALER 0 Refills 108 mcg/actuation Alprazolam (Alprazolam) 1 Mg Tab 1 MG PO TID PRN for ANXIETY, TAB 0 Refills Baclofen (Baclofen) 10 Mg Tab 10 MG PO TID PRN for MUSCLE SPASM, TAB 0 Refills Diltiazem (Diltiazem) 30 Mg Tab 30 MG PO DAILY for Angina, #120 TAB 0 Refills Ferrous Sulfate (Ferrous Sulfate) 325 Mg (65 Mg Iron) Tablet 325 MG PO DAILY for Nutritional Supplement, #30 TAB 0 Refills Folic Acid (Folic Acid) 800 Mcg Tab 1000 MCG PO DAILY for Nutritional Supplement, TAB 0 Refills Gabapentin (Gabapentin) 100 Mg Cap 100 MG PO TID, #90 CAP 0 Refills Ipratropium HFA 12.9 GM Inh (Atrovent HFA 12.9 GM Inh) 17 Mcg/Act Aer 2 PUFF INH QID, #1 INHALER 0 Refills Levothyroxine (Levothyroxine) 50 Mcg Tab 50 MCG PO DAILY for Thyroid, #30 TAB 0 Refills Pantoprazole (Pantoprazole) 40 Mg Tab 40 MG PO DAILY for Reflux, #30 TAB 0 Refills Risperidone (Risperidone) 0.5 Mg Tab 0.5 MG PO HS, #30 TAB 0 Refills Tramadol (Tramadol) 50 Mg Tab 50 MG PO Q4H PRN for PAIN, TAB 0 Refills Daryl Cross MD Nov 20, 2016 12:00
[2016-11-20 12:03] VITALS: BP 165/72; PULSE 84; RESP 20; TEMP 99.2; O2SAT 97
[2016-11-20 16:30] VITALS: BP 140/71; PULSE 78; RESP 20; TEMP 98.6; O2SAT 99
== END 2016-11-20 19:53 | disposition home health service (06) | DRG 190 ==
LOC: NEPE 13:27 → NEDA 18:03 → NEPFCDU 21:13 → OBSVTOIN 11-15 12:35 → N06B 11-16 03:49
PROVIDERS: ADMIT Family Medicine; ATTEND Family Medicine
DX: J44.1 Chronic obstructive pulmonary disease with (acute) exacerbation (principal); J96.91 Respiratory failure, unspecified with hypoxia; J44.0 Chronic obstructive pulmonary disease with (acute) lower respiratory infection; J18.9 Pneumonia, unspecified organism; I69.354 Hemiplegia and hemiparesis following cerebral infarction affecting left non-dominant side; I69.992 Facial weakness following unspecified cerebrovascular disease; I10 Essential (primary) hypertension; F41.9 Anxiety disorder, unspecified; E03.9 Hypothyroidism, unspecified; D64.9 Anemia, unspecified; F32.9 Major depressive disorder, single episode, unspecified; M79.605 Pain in left leg; F17.210 Nicotine dependence, cigarettes, uncomplicated; K59.00 Constipation, unspecified; G47.00 Insomnia, unspecified
CPT/HCPCS: 71010; 80048; 80053; 82550; 82948; 83036; 83735; 84100; 84439; 84443; 84484; 85007; 85025; 85027; 87070; 87205; 93005; 94150; 94620; 94640; 94664; 96374; 96375; G0378; G8987-GO; G8987-GP; G8988-GO; G8988-GP; J0456; J1650; J1815; J1956; J2930; J7050; J7613

== ENCOUNTER 2017-05-06 11:54 | Observation (INO) | payer MEDICARE, MEDICAID ==
[~2017-05-06] VITALS: Ht 165.1 cm; Wt 53.0 kg
[2017-05-06] VITALS (9 sets, daily range): BP systolic 144–199; BP diastolic 68–90; PULSE 57–80; RESP 16–21; TEMP 98.1–98.9; O2SAT 96–100
[~2017-05-06 11:54] MED LIST changes: +ALBUAER3 INH; -ALPR1 PO; +ALPR1TAB3 PO; +BACL10TA PO; +DILT30TA PO; -DOCU1CAP39 PO; -ECOT81TA2 PO; +FERR325T18 PO; +FOLI800T PO; +IPRA17I INH; +LEVO50TA4 PO; +LEVO750T3 PO; -OXYC5 PO; -PANT40IN3 PO; +PANT40TA3 PO; +PRED20 PO; +RISP0.5T2 PO; +TRAM50TA PO
[2017-05-06] MEDS ORDERED: SODIUM CHLORID 0.9% 500 ML INJ 500 ML IV ONE (12:15)
[2017-05-06 12:31] LABS: AUTOMATED NEUTROPHIL # 9.2 TH/MM3 (1.8-7.7); BASOPHIL % 0.3 % (0.0-2.0); EOSINOPHIL # 0.4 TH/MM3 (0-0.4); EOSINOPHIL % 2.8 % (0.0-4.0); HEMATOCRIT 38.3 % (39.0-51.0); HEMOGLOBIN 12.9 GM/DL (13.0-17.0); LYMPHOCYTE # 1.4 TH/MM3 (1.0-4.8); MEAN CELL VOLUME 90.2 FL (80.0-100.0); MEAN CORPUSCULAR HEMOGLOBIN 30.4 PG (27.0-34.0); MEAN CORPUSCULAR HGB CONC 33.7 % (32.0-36.0); MEAN PLATELET VOLUME 12.2 FL (7.0-11.0); MONO % 13.7 % (0.0-8.0); MONOCYTE # 1.7 TH/MM3 (0-0.9); NEUT % 72.2 % (16.0-70.0); PLATELET COUNT 161 TH/MM3 (150-450); RED BLOOD COUNT 4.25 MIL/MM3 (4.50-5.90); RED CELL DISTRIBUTION WIDTH 14.4 % (11.6-17.2); WHITE BLOOD COUNT 12.7 TH/MM3 (4.0-11.0)
--- NOTE | 2017-05-06 12:31 | PD ---
HPI Chief Complaint: Chest Pain Time Seen by Provider: 12:11 Travel History International Travel<30 days: No Contact w/Intl Traveler<30days: No Traveled to known affect area: No History of Present Illness HPI 62y male with COPD with continuous tobacco dependence, CVA with residual left sided weakness, anxiety, depression, hypothyroid presents to the ED via evac from home for chest pain that started 3 days ago. States the pain started while he was sitting. Located midsternal, radiating to the left arm, increases with inspiration, rated 9/10. Denies unusual shortness of breath, nausea, vomiting. 162mg ASA administered by [facility]. States he has a history of a heart attack 27 years ago however, denies history of stents or CABG. 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 After speaking with the staff, pt told them that he has this pain for years. Patient states that he had pneumonia in October 2016. In addition, patient was a resident at [facility] for 7 months last year for "leg pain". He denies recent travel, history of cancer, history of DVT or PE, recent surgeries. PFSH Past Medical History Anemia: Yes Arthritis: No Anxiety: Yes Depression: Yes (AFTER ) Cancer: No Cardiovascular Problems: Yes Congestive Heart Failure: Yes COPD: Yes Cerebrovascular Accident: Yes (LLE WEAKNESS) Coronary Artery Disease: Yes (CHRONIC ISCHEMIC HEART DISEASE) Diabetes: No Diminished Hearing: No Endocrine: Yes GERD: Yes Genitourinary: Yes Hypertension: Yes Immune Disorder: No Implanted Vascular Access Dvce: Yes Musculoskeletal: Yes (MUSCLE WEAKNESS) Neurologic: No Psychiatric: Yes Reproductive: No Respiratory: Yes Myocardial Infarction: Yes Seizures: Yes Thyroid Disease: Yes (HYPOTHYROID) Tetanus Vaccination: > 5 Years Influenza Vaccination: No Past Surgical History Joint Replacement: Yes (RODS IN RIGHT LEG) Pacemaker: No Other Surgery: Yes Social History Alcohol Use: No Tobacco Use: Yes (PK./DAY) Substance Use: No Allergies-Medications (Allergen,Severity, Reaction): Coded Allergies: ampicillin (Unverified Allergy, Severe, 05/06/17) chlorpromazine (Unverified Allergy, Severe, 05/06/17) doxycycline (Unverified Allergy, Severe, 05/06/17) minocycline (Unverified Allergy, Severe, 05/06/17) penicillin G (Unverified Allergy, Severe, 05/06/17) tigecycline (Unverified Allergy, Severe, 05/06/17) Reported Meds & Prescriptions Reported Meds & Active Scripts Active Prednisone 20 Mg Tab 20 Mg PO DIRECTED Take 60 MG daily x 4 days, then 40 MG x 4 days, then 20 MG daily x 4 days. Levofloxacin 750 Mg Tablet 750 Mg PO DAILY Reported Proair Hfa 8.5 GM Inh (Albuterol Sulfate) 90 Mcg/Act Aer 2 Puff INH QID PRN 108 mcg/actuation Atrovent HFA 12.9 GM Inh (Ipratropium [place]) 17 Mcg/Act Aer 2 Puff INH QID Ferrous Sulfate 325 Mg (65 Mg Iron) Tablet 325 Mg PO DAILY Baclofen 10 Mg Tab 10 Mg PO TID PRN Folic Acid 800 Mcg Tab 1,000 Mcg PO DAILY Diltiazem (Diltiazem HCl) 30 Mg Tab 30 Mg PO DAILY Levothyroxine (Levothyroxine Sodium) 50 Mcg Tab 50 Mcg PO DAILY Risperidone 0.5 Mg Tab 0.5 Mg PO HS Gabapentin 100 Mg Cap 100 Mg PO TID Alprazolam 1 Mg Tab 1 Mg PO TID PRN Tramadol (Tramadol HCl) 50 Mg Tab 50 Mg PO Q4H PRN Pantoprazole (Pantoprazole Sodium) 40 Mg Tab 40 Mg PO DAILY Review of Systems Except as stated in HPI: all other systems reviewed are Neg Physical Exam Narrative GENERAL: Pt urinating upon initial assessment, smells of cigarette smoke, unkempt, tangential historian (requests his bag from home, mentions a colonoscopy that is due for h/o polyps), left sided facial droop (chronic) SKIN: Focused skin assessment warm/dry. HEAD: Atraumatic. Normocephalic. EYES: Pupils equal and round. No scleral icterus. No injection or drainage. ENT: No nasal bleeding or discharge. Mucous membranes pink and moist. NECK: Trachea midline. No JVD. no lymphadenopathy CARDIOVASCULAR: Regular rate and rhythm. No murmur appreciated. RESPIRATORY: No accessory muscle use. L>R rhonchi with wheezing GASTROINTESTINAL: Abdomen soft, non-tender, nondistended. MUSCULOSKELETAL: No obvious deformities. No clubbing. No cyanosis. No edema. No CVA tenderness. no TTP to chest wall NEUROLOGICAL: Awake and alert. Motor grossly within normal limits. Normal speech. PSYCHIATRIC: Appropriate mood and affect; insight and judgment normal. Data Data Last Documented VS Vital Signs Date Time Temp Pulse Resp B/P (MAP) Pulse Ox O2 Delivery O2 Flow Rate FiO2 05/06/17 12:18 60 18 163/74 (103) 99 Room Air 05/06/17 12:08 98.3 Orders Orders Electrocardiogram (05/06/17 12:13) Ckmb (Isoenzyme) Profile (05/06/17 12:12) Complete Blood Count With Diff (05/06/17 12:12) Comprehensive Metabolic Panel (05/06/17 12:12) Magnesium (Mg) (05/06/17 12:12) Prothrombin Time / Inr (Pt) (05/06/17 12:12) Act Partial Throm Time (Ptt) (05/06/17 12:12) Troponin I (05/06/17 12:12) Ecg Monitoring (05/06/17 12:12) Iv Access Insert/Monitor (05/06/17 12:12) Oximetry (05/06/17 12:12) Sodium Chlorid 0.9% 500 Ml Inj (Ns 500 M (05/06/17 12:15) Chest, Pa & Lat (05/06/17 12:12) Activity Bed Rest With Brp (05/06/17 15:25) Vital Signs (Adult) Q4H (05/06/17 15:25) Cardiac Rhythm .As Directed (05/06/17 15:25) Notify Dr: Other .PRN (05/06/17 15:25) Notify Dr. Parameters (05/06/17 15:25) Ckmb (Isoenzyme) Profile (05/06/17 15:25) Ckmb (Isoenzyme) Profile (05/06/17 18:25) Troponin I (05/06/17 15:25) Troponin I (05/06/17 18:25) Electrocardiogram (05/06/17 15:25) Electrocardiogram (05/06/17 18:25) Sodium Chloride 0.9% Flush (Ns Flush) (05/06/17 15:30) Sodium Chloride 0.9% Flush (Ns Flush) (05/06/17 21:00) Acetaminophen (Tylenol) (05/06/17 15:30) Studio Hand / Telemetry COLT.Q8H (05/06/17 15:25) Admit Order (Ed Use Only) (05/06/17 15:25) Labs Laboratory Tests Test 05/06/17 12:15 05/06/17 15:00 05/06/17 15:25 White Blood Count 12.7 TH/MM3 Red Blood Count 4.25 MIL/MM3 Hemoglobin 12.9 GM/DL Hematocrit 38.3 % Mean Corpuscular Volume 90.2 FL Mean Corpuscular Hemoglobin 30.4 PG Mean Corpuscular Hemoglobin Concent 33.7 % Red Cell Distribution Width 14.4 % Platelet Count 161 TH/MM3 Mean Platelet Volume 12.2 FL Neutrophils (%) (Auto) 72.2 % Lymphocytes (%) (Auto) 11.0 % Monocytes (%) (Auto) 13.7 % Eosinophils (%) (Auto) 2.8 % Basophils (%) (Auto) 0.3 % Neutrophils # (Auto) 9.2 TH/MM3 Lymphocytes # (Auto) 1.4 TH/MM3 Monocytes # (Auto) 1.7 TH/MM3 Eosinophils # (Auto) 0.4 TH/MM3 Basophils # (Auto) 0.0 TH/MM3 CBC Comment DIFF FINAL Differential Comment Blood Urea Nitrogen 4 MG/DL Creatinine 0.64 MG/DL Random Glucose 93 MG/DL Total Protein 7.3 GM/DL Albumin 3.9 GM/DL Calcium Level 8.5 MG/DL Magnesium Level 1.8 MG/DL Alkaline Phosphatase 108 U/L Aspartate Amino Transf (AST/SGOT) 28 U/L Alanine Aminotransferase (ALT/SGPT) 16 U/L Total Bilirubin 0.3 MG/DL Sodium Level 139 MEQ/L Potassium Level 3.9 MEQ/L Chloride Level 105 MEQ/L Carbon Dioxide Level 26.8 MEQ/L Anion Gap 7 MEQ/L Estimat Glomerular Filtration Rate 126 ML/MIN Total Creatine Kinase 56 U/L Troponin I LESS THAN 0.02 NG/ML MDM Medical Decision Making Medical Screen Exam Complete: Yes Emergency Medical Condition: Yes Differential Diagnosis STEMI, NSTEMI, angina, COPD exacerbation, Narrative Course 62y male with COPD with continuous tobacco dependence, CVA with residual left sided weakness, anxiety, depression, hypothyroid presents to the ED via evac from home for chest pain that started 3 days ago. States the pain started while he was sitting. Located midsternal, radiating to the left arm, increases with inspiration, rated 9/10. Denies unusual shortness of breath, nausea, vomiting. 162mg ASA administered by [facility]. States he has a history of a heart attack 27 years ago however, denies history of stents or CABG. 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 After speaking with the staff, pt told them that he has this pain for years. Patient states that he had pneumonia in October 2016. In addition, patient was a resident at [facility] for 7 months last year for "leg pain". He denies recent travel, history of cancer, history of DVT or PE, recent surgeries. Vital signs negative Physical exam findings with rhonchi left sided with diffuse wheezing, no TTP to chest wall palpation EKG shows sinus rhythm without STEMI pattern Initial cardiac labs negative. Last Impressions Chest X-Ray 05/06/17 1212 Signed Impressions: Service Date/Time: Saturday, May 06, 2017 12:34 - CONCLUSION: Streaky density within the right upper lung field consistent with atelectasis and/or infiltrate. Alonzo Barker MD I am not convinced this is hi COPD causing his symptoms today. There is a cardiac history, according to patient. I do not see a stress test or cardiac cath in his EMR here so will admit to the chest pain center. Pt advised of the plan and agrees. He states that he thinks he belongs back at [facility] for rehab. There may be a a secondary reason for his visit today which includes to go back to his rehab facility. Consider PT eval prior to discharge after cardio eval. Diagnosis Primary Impression: Angina at rest Admitting Information Admitting Physician Requests: Observation Condition: Stable Meagan Mart May 06, 2017 12:31
[2017-05-06 12:49] LABS: ALBUMIN 3.9 GM/DL (3.4-5.0); ALT (GPT) 16 U/L (12-78); AST (GOT) 28 U/L (15-37); BICARBONATE 26.8 MEQ/L (21.0-32.0); BLOOD UREA NITROGEN 4 MG/DL (7-18); CALCIUM 8.5 MG/DL (8.5-10.1); CHLORIDE 105 MEQ/L (98-107); CREATININE 0.64 MG/DL (0.60-1.30); GLOMERULAR FILTRATION RATE 126 ML/MIN (>89); GLUCOSE,RANDOM 93 MG/DL (74-106); MAGNESIUM 1.8 MG/DL (1.5-2.5); SODIUM (NA) 139 MEQ/L (136-145)
[2017-05-06 12:52] LABS: ALKALINE PHOSPHATASE 108 U/L (45-117); TOTAL BILIRUBIN ADULT 0.3 MG/DL (0.2-1.0); TOTAL PROTEIN 7.3 GM/DL (6.4-8.2); TROPONIN I LESS THAN 0.02 NG/ML (0.02-0.05)
--- NOTE | 2017-05-06 13:36 | RADRPT ---
EXAM DATE/TIME: 05/06/2017 12:34 [facility] COMPARISON: No previous studies available for comparison. INDICATIONS : Chest pain for three days, short of breath MEDICAL HISTORY : Chronic obstructive pulmonary disease. Congestive heart failure. Stroke. [place], seizures, hypertensi on SURGICAL HISTORY : None. ENCOUNTER: Initial ACUITY: 3 days PAIN SCORE: 7/10 LOCATION: Bilateral chest FINDINGS: Streaky density is noted within the right upper lung field consistent with atelectasis and/or infiltr ate. The left lung is clear. The heart is normal. CONCLUSION: Streaky density within the right upper lung field consistent with atelectasis and/or infiltrate. Alonzo Barker MD on May 06, 2017 at 13:33 Board Certified Radiologist. This report was verified electronically.
[2017-05-06] MEDS ORDERED: ACETAMINOPHEN 500 MG CPLT PO PRN (15:30)
[2017-05-06] MEDS ORDERED: SODIUM CHLORIDE 0.9% FLUSH 10 ML FLUSH IV FLUSH PRN (15:30)
[2017-05-06 15:47] LABS: INTERNATIONAL NORMALIZED RATIO 1.1 RATIO; PROTHROMBIN TIME - PATIENT 11.5 SEC (9.8-11.6)
[2017-05-06] MEDS ORDERED: RESP: ALBUTEROL 2.5 MG/IPRATROPIUM 0.5 MG NEB (PRN) INH (16:15)
[2017-05-06 16:16] LABS: TROPONIN I LESS THAN 0.02 NG/ML (0.02-0.05)
[2017-05-06] MEDS ORDERED: MOBI15TA PO (16:26)
--- NOTE | 2017-05-06 16:28 | HHI.HP ---
[facility] Primary Care Physician Indira Costello MD Chief Complaint Chest pain History of Present Illness This is a 62-year-old male that presents to ED via [facility] from [place] with a complaint of left-sided chest pain has been intermittent for 3 days as well as left knee pain that he states began this afternoon after he fell and landed on the knee. States he has residual left-sided weakness which is been there chronically since having a CVA years ago. He walks with a cane. Denies headache. Denies neck or back injury. There was no loss of consciousness. States he tripped. The left-sided chest discomfort as sharp. The last 5-10 seconds at a time but recurs many times. He is short of breath with it but then also readily admits that he has COPD and is also short of breath on a chronic basis. Continues to smoke cigarettes. Denies history of CAD. States he's had a stress test before but as many years ago. Cannot recall ever having a cardiac catheterization. Denies recent illness. He had pneumonia in October of last year and finished antibiotics. He has a chronic smoker cough but states it has been nonproductive and assist his typical smoker cough. Review of Systems General: Patient denies fevers, chills recent, and recent travel HEENT: Patient denies headache, sore throat, difficulty swallowing. Cardiovascular: Has the chest discomfort as mentioned above. Denies sensation of heart beating rapidly or irregularly. No syncope. Respiratory: Chronic shortness of breath. Denies inspirational chest discomfort. Chronic smoker call. Chronically has a wheeze. Denies hemoptysis. GI: Patient denies nausea, vomiting, diarrhea, abdominal pain, bloody stools. Musculoskeletal: Complains of left knee pain. Patient denies edema. Denies calf pain or edema. Neurovascular: Patient denies numbness, tingling, weakness in extremities. Denies headache. Endocrine: Denies polyuria and polydipsia. Hematologic: Denies easy bruising. Skin: Denies rash or itching. Past Family Social History Allergies: Coded Allergies: ampicillin (Unverified Allergy, Severe, 05/06/17) chlorpromazine (Unverified Allergy, Severe, 05/06/17) doxycycline (Unverified Allergy, Severe, 05/06/17) minocycline (Unverified Allergy, Severe, 05/06/17) penicillin G (Unverified Allergy, Severe, 05/06/17) tigecycline (Unverified Allergy, Severe, 05/06/17) Past Medical History COPD, hypertension, hyperlipidemia, schizoaffective disorder, tobacco abuse, history of CVA with residual left-sided weakness, and hypothyroidism. Past Surgical History Right leg Reported Medications Reported Meds & Active Scripts Active Prednisone 20 Mg Tab 20 Mg PO DIRECTED Take 60 MG daily x 4 days, then 40 MG x 4 days, then 20 MG daily x 4 days. Levofloxacin 750 Mg Tablet 750 Mg PO DAILY Reported Proair Hfa 8.5 GM Inh (Albuterol Sulfate) 90 Mcg/Act Aer 2 Puff INH QID PRN 108 mcg/actuation Atrovent HFA 12.9 GM Inh (Ipratropium [place]) 17 Mcg/Act Aer 2 Puff INH QID Ferrous Sulfate 325 Mg (65 Mg Iron) Tablet 325 Mg PO DAILY Baclofen 10 Mg Tab 10 Mg PO TID PRN Folic Acid 800 Mcg Tab 1,000 Mcg PO DAILY Diltiazem (Diltiazem HCl) 30 Mg Tab 30 Mg PO DAILY Levothyroxine (Levothyroxine Sodium) 50 Mcg Tab 50 Mcg PO DAILY Risperidone 0.5 Mg Tab 0.5 Mg PO HS Gabapentin 100 Mg Cap 100 Mg PO TID Alprazolam 1 Mg Tab 1 Mg PO TID PRN Tramadol (Tramadol HCl) 50 Mg Tab 50 Mg PO Q4H PRN Pantoprazole (Pantoprazole Sodium) 40 Mg Tab 40 Mg PO DAILY Active Ordered Medications Current Medications Medications (Trade) Dose Ordered Sig/[place] Route Start Time Stop Time Status Last Admin (NS Flush) 2 ml UNSCH PRN IV FLUSH 05/06/17 15:30 (NS Flush) 2 ml BID IV FLUSH 05/06/17 21:00 (Tylenol) 500 mg Q4H PRN PO 05/06/17 15:30 (Aspirin) 325 mg DAILY PO 05/06/17 16:15 (Duoneb Neb) 1 ampule Q4HR NEB PRN INH 05/06/17 16:15 Family History Really not sure of his family cardiac history. Social History Patient has smoked a pack to 1-1/2 packs of cigarettes daily for 50 years. Denies alcohol 11 years. Denies illicit drugs. Physical Exam Vital Signs Vital Signs Date Time Temp Pulse Resp B/P (MAP) Pulse Ox O2 Delivery O2 Flow Rate FiO2 05/06/17 12:18 60 18 163/74 (103) 99 Room Air 05/06/17 12:15 66 18 99 Room Air 05/06/17 12:08 98.3 68 16 163/74 (103) 99 Physical Exam GENERAL: This is a well-nourished, well-developed patient, in no apparent distress. Patient speaks in clear complete sentences. Patient is pleasant. HEENT: Head is atraumatic and normocephalic. Neck is supple without lymphadenopathy and trachea is midline. No JVD or carotid bruits. CARDIOVASCULAR: Regular rate and rhythm without murmurs, gallops, or rubs. RESPIRATORY: Scattered rhonchi with also scattered wheezing more so in the bases. Breath sounds equal bilaterally. No rales. Chest wall is nontender. No use of accessory muscles. GASTROINTESTINAL: Abdomen is nontender, nondistended. Abdomen soft. No obvious pulsatile mass or bruit. No CVA tenderness. Strong femoral pulses bilaterally. Normal bowel sounds in all quadrants. MUSCULOSKELETAL: Patient is moving upper and lower extremities freely specifically he had no discomfort in the left knee when I moved it around while striking him. There is no ecchymosis, abrasions, or edema in the knee however he has stated this knee hurts. No calf tenderness or edema, no Homans sign. Strong pulses in upper and lower extremities. NEUROLOGICAL: Patient is alert and oriented. Cranial nerves 2-12 are grossly intact. Left upper lower extremities are somewhat weaker than the right which patient states chronic.. SKIN: No rash and turgor is normal. Laboratory Laboratory Tests Test 05/06/17 12:15 05/06/17 15:00 05/06/17 15:25 White Blood Count 12.7 Red Blood Count 4.25 Hemoglobin 12.9 Hematocrit 38.3 Mean Corpuscular Volume 90.2 Mean Corpuscular Hemoglobin 30.4 Mean Corpuscular Hemoglobin Concent 33.7 Red Cell Distribution Width 14.4 Platelet Count 161 Mean Platelet Volume 12.2 Neutrophils (%) (Auto) 72.2 Lymphocytes (%) (Auto) 11.0 Monocytes (%) (Auto) 13.7 Eosinophils (%) (Auto) 2.8 Basophils (%) (Auto) 0.3 Neutrophils # (Auto) 9.2 Lymphocytes # (Auto) 1.4 Monocytes # (Auto) 1.7 Eosinophils # (Auto) 0.4 Basophils # (Auto) 0.0 CBC Comment DIFF FINAL Differential Comment Blood Urea Nitrogen 4 Creatinine 0.64 Random Glucose 93 Total Protein 7.3 Albumin 3.9 Calcium Level 8.5 Magnesium Level 1.8 Alkaline Phosphatase 108 Aspartate Amino Transf (AST/SGOT) 28 Alanine Aminotransferase (ALT/SGPT) 16 Total Bilirubin 0.3 Sodium Level 139 Potassium Level 3.9 Chloride Level 105 Carbon Dioxide Level 26.8 Anion Gap 7 Estimat Glomerular Filtration Rate 126 Total Creatine Kinase 56 Troponin I LESS THAN 0.02 Prothrombin Time 11.5 Prothromb Time International Ratio 1.1 Activated Partial Thromboplast Time 29.4 Result Diagram: 05/06/17 1215 05/06/17 1215 Imaging Last 48 hours Impressions Chest X-Ray 05/06/17 1212 Signed Impressions: Service Date/Time: Saturday, May 06, 2017 12:34 - CONCLUSION: Streaky density within the right upper lung field consistent with atelectasis and/or infiltrate. Alonzo Barker MD Course Initial EKG is sinus rhythm with nonspecific ST changes. No significant ST elevations. Caprini VTE Risk Assessment Caprini VTE Risk Assessment: Mod/High Risk (score >= 2) Caprini Risk Assessment Model Point Value = 1 Point Value = 2 Point Value = 3 Point Value = 5 Age 41-60 Minor surgery BMI > 25 kg/m2 Swollen legs Varicose veins or History of unexplained or recurrent spontaneous Oral contraceptives or hormone replacement Sepsis (< 1 month) Serious lung disease, including pneumonia (< 1 month) Abnormal pulmonary function Acute myocardial infarction Congestive heart failure (< 1 month) History of inflammatory bowel disease Medical patient at bed rest Age 61-74 Arthroscopic surgery Major open surgery (> 45 min) Laparoscopic surgery (> 45 min) Malignancy Confined to bed (> 72 hours) Immobilizing plaster cast Central venous access Age >= 75 History of VTE Family history of VTE Factor V Leiden Prothrombin [id number] Lupus anticoagulant Anticardiolipin antibodies Elevated serum homocysteine Heparin-induced thrombocytopenia Other congenital or acquired thrombophilia Stroke (< 1 month) Elective arthroplasty Hip, pelvis, or leg fracture Acute spinal cord injury (< 1 month) Prophylaxis Regimen Total Risk Factor Score Risk Level Prophylaxis Regimen 0-1 Low Early ambulation 2 Moderate Order ONE of the following: *Sequential Compression Device (SCD) *Heparin 5000 units SQ BID 3-4 Higher Order ONE of the following medications: *Heparin 5000 units SQ TID *Enoxaparin/Lovenox 40 mg SQ daily (WT < 150 kg, CrCl > 30 mL/min) *Enoxaparin/Lovenox 30 mg SQ daily (WT < 150 kg, CrCl > 10-29 mL/min) *Enoxaparin/Lovenox 30 mg SQ BID (WT < 150 kg, CrCl > 30 mL/min) AND/OR *Sequential Compression Device (SCD) 5 or more Highest Order ONE of the following medications: *Heparin 5000 units SQ TID (Preferred with Epidurals) *Enoxaparin/Lovenox 40 mg SQ daily (WT < 150 kg, CrCl > 30 mL/min) *Enoxaparin/Lovenox 30 mg SQ daily (WT < 150 kg, CrCl > 10-29 mL/min) *Enoxaparin/Lovenox 30 mg SQ BID (WT < 150 kg, CrCl > 30 mL/min) AND *Sequential Compression Device (SCD) Assessment and Plan Assessment and Plan * Chest pain: Patient will continue to have serial cardiac enzymes and EKGs for ruling out purposes. He will be seen by Dr. Sharif Villalobos of cardiology in the chest pain center. If he rules out, patient will then have a Lexiscan in the morning. He'll be discharged home if the stress test was nonischemic with instructions to follow-up with his PCP. * Hypertension: Continue current medication. * COPD: Patient is a quit smoking. There'll be when necessary DuoNeb's. Resume his medication at discharge. * Hypothyroidism: Continue current medication. * Tobacco abuse: Patient has been counseled on importance of smoking cessation. * Left knee pain: We'll get x-ray of left knee. * History of CVA: Patient will need to resume his medication. He is currently not on a statin and is not aware why. He should discuss this with his PCP as there may be a contraindication. However if there is no contraindication he should be on statin therapy. Patient is stable at this time. He is agreeable to this plan. Jorge Stephens May 06, 2017 16:28
[2017-05-06] MEDS: ASPIRIN 325 MG TAB PO SCH (16:30)
[2017-05-06] MEDS ORDERED: traMADol HCL 50 MG TAB PO PRN (17:00)
[2017-05-06] MEDS ORDERED: ALPRAZolam 1 MG TAB PO PRN (17:00)
--- NOTE | 2017-05-06 17:06 | RADRPT ---
EXAM DATE/TIME: 05/06/2017 16:52 [facility] COMPARISON: No previous studies available for comparison. INDICATIONS : Fell out of chair yesterday, pain anterior left knee MEDICAL HISTORY : Chronic renal failure. Congestive heart failure. Stroke. [place], seizures SURGICAL HISTORY : None. ENCOUNTER: Initial ACUITY: 1 day PAIN SCORE: 8/10 LOCATION: Left knee FINDINGS: Bones are osteopenic. Moderate vascular callus cages are noted. There is no joint effusion. Fractu res are not appreciated. CONCLUSION: Osteopenia, no fracture. Osteopenia makes detection of nondisplaced fractures difficult Cortez Frazier MD FACR on May 06, 2017 at 17:03 Board Certified Radiologist. This report was verified electronically.
[2017-05-06] MEDS ORDERED: BACLOFEN 10 MG TAB PO PRN (17:15)
[2017-05-06] MEDS: ALPRAZolam 1 MG TAB PO PRN (18:32)
[2017-05-06] MEDS: GABAPENTIN 100 MG CAP PO SCH (18:32)
[2017-05-06 19:21] LABS: TROPONIN I LESS THAN 0.02 NG/ML (0.02-0.05)
[2017-05-06] MEDS ORDERED: amLODIPine BESYLATE 5 MG TAB PO ONE (20:30)
[2017-05-06] MEDS: SODIUM CHLORIDE 0.9% FLUSH 10 ML FLUSH IV FLUSH SCH (20:54)
[2017-05-06] MEDS ORDERED: risperiDONE 0.5 MG TAB PO SCH (21:00)
--- NOTE | 2017-05-06 21:50 | EKG ---
Date Performed: 05/06/2017 Time Performed: 12:18:21 PTAGE: 62 years EKG: Sinus rhythm NORMAL ECG PREVIOUS TRACING : 11/14/2016 13.55 DOCTOR: Tiffany Shaver Interpretating Date/Time 05/08/2017 06:41:59
[2017-05-06] MEDS: BACLOFEN 10 MG TAB PO PRN (22:02)
[2017-05-07 00:05] VITALS: PULSE 67
[2017-05-07 03:47] VITALS: BP 129/64; PULSE 73; RESP 18; TEMP 97.9; O2SAT 94
[2017-05-07 04:02] VITALS: PULSE 73
[2017-05-07] MEDS ORDERED: LEVOTHYROXINE SODIUM 50 MCG TAB PO SCH (06:00)
[2017-05-07] MEDS: BACLOFEN 10 MG TAB PO PRN (06:05)
[2017-05-07] MEDS: ALPRAZolam 1 MG TAB PO PRN (06:10)
--- NOTE | 2017-05-07 07:39 | EKG ---
Date Performed: 05/06/2017 Time Performed: 16:29:36 PTAGE: 62 years EKG: SINUS BRADYCARDIA BORDERLINE ECG Since PREVIOUS TRACING , no significant change noted PREVIOUS TRACIN05/06/2017 16.27 DOCTOR: Ryann Bill Interpretating Date/Time 05/08/2017 06:41:51
--- NOTE | 2017-05-07 07:40 | EKG ---
Date Performed: 05/06/2017 Time Performed: 21:59:11 PTAGE: 62 years EKG: Sinus rhythm WITH SINUS ARRHYTHMIA NORMAL ECG Since PREVIOUS TRACING , no significant change noted PREVIOUS TRACIN05/06/2017 18.50 DOCTOR: Ryann Bill Interpretating Date/Time 05/08/2017 06:41:42
[2017-05-07 08:28] VITALS: BP 166/74; PULSE 91; RESP 18; TEMP 98.4; O2SAT 95
[2017-05-07] MEDS ORDERED: DILTIAZEM HCL 30 MG TAB PO SCH (09:00)
[2017-05-07] MEDS ORDERED: FOLIC ACID 1 MG TAB PO SCH (09:00)
[2017-05-07] MEDS ORDERED: REGADENOSON INJ 0.4 MG/5 ML SYR ONE (09:37)
--- NOTE | 2017-05-07 10:44 | RADRPT ---
EXAM DATE/TIME: 05/07/2017 09:22 [facility] COMPARISON: No previous studies available for comparison. INDICATIONS : Left sided chest pain. Angina. Myocardial infarction. DOSE: 25.5 mCi Tc99m Myoview at stress. 8.1 mCi Tc99m Myoview at rest. 0.4 mg Lexiscan STRESS SYMPTOMS: Shortness of breath. EJECTION FRACTION: 65% MEDICAL HISTORY : Hypertension. Chronic obstructive pulmonary disease. Congestive heart failure. SURGICAL HISTORY : Right leg surgery. ENCOUNTER: Initial ACUITY: 3 days PAIN SCALE: 3/10 LOCATION: Left chest TECHNIQUE: The patient underwent pharmacologic stress with infusion of prescribed dose. Continuous ECG tracing was monitored during stress. Gated SPECT imaging was performed after stress and conventional SPECT i maging was performed at rest. The examination was performed on a SPECT/CT scanner, both attenuation and non-corrected datasets were reviewed. FINDINGS: DISTRIBUTION: The maximum perfused segment at stress is in the medial wall. PERFUSION STUDY: The pattern of perfusion at stress is within normal limits. GATED STUDY: There is intact wall motion and thickening without hypokinetic or dyskinetic segments. CONCLUSION: 1. Normal exam. No evidence for ischemia or infarction. 2. Intact wall motion with EF of 65%. RISK CATEGORY: Low (<1% Annual Mortality Rate) Akin Pena MD on May 07, 2017 at 10:41 Board Certified Radiologist. This report was verified electronically.
[2017-05-07] MEDS ORDERED: ASPI81TA23 PO (10:57)
--- NOTE | 2017-05-07 11:00 | HHI.DCPOC ---
Discharge Care Plan Diagnosis: (1) Chest pain (2) COPD (chronic obstructive pulmonary disease) (3) Hypertension (4) Hypothyroidism (5) Knee contusion (6) Tobacco abuse (7) History of CVA (cerebrovascular accident) Goals to Promote Your Health YOU SHOULD BE ON A CHOLESTEROL MEDICATION. DISCUSS THIS WITH YOUR PRIMARY CARE DOCTOR. * To prevent worsening of your condition and complications * To maintain your health at the optimal level Directions to Meet Your Goals Take your medications as prescribed Follow your dietary instruction Follow activity as directed Keep your appointments as scheduled Take your immunizations and boosters as scheduled If your symptoms worsen call your PCP, if no PCP go to Urgent Care Center or Emergency Room Smoking is Dangerous to Your Health. Avoid second hand smoke Call the 24-hour hour crisis hotline for domestic abuse at Jorge Stephens May 07, 2017 11:00
--- NOTE | 2017-05-07 11:02 | HHI.FF ---
Face to Face Verification Diagnosis: (1) Chest pain (2) COPD (chronic obstructive pulmonary disease) (3) Hypertension (4) History of CVA (cerebrovascular accident) (5) Knee contusion Physical Therapy Order: Evaluate and Treat, Improve ambulation, Strength and gait training Occupational Therapy Order: Evaluate and Treat Home Health Nursing Order: Medical education Signs/symptoms of disease process Medication education-adverse effect Nursing assessment with vital signs Mess Attendant Order: To Evaluate: Living conditions/environment, Support services Order: To Provide: Community services I have seen patient All Lockwood on 05/07/17. My clinical findings support the need for the requested home health care services because: Ltd mobility - disease progression Deconditioned w/ increased weakness I certify that my clinical findings support that this patient is homebound because: Unsteady gait/balance Jorge Stephens May 07, 2017 11:02
[2017-05-07 11:13] VITALS: BP 157/72; PULSE 88; RESP 16; TEMP 98.9; O2SAT 99
[2017-05-07] MEDS: SODIUM CHLORIDE 0.9% FLUSH 10 ML FLUSH IV FLUSH SCH (11:37)
[2017-05-07] MEDS: GABAPENTIN 100 MG CAP PO SCH ×2 (11:38→12:13)
[2017-05-07] MEDS: ASPIRIN 325 MG TAB PO SCH (11:38)
--- NOTE | 2017-05-07 12:51 | TR ---
Date Performed: 05/07/2017 Time Performed: 09:41:29 DOCTOR: Ryann Bill DRUG LIST: CLINICAL HISTORY: CHEST PAIN REASON FOR TEST: CHEST PAIN REASON FOR ENDING: OBSERVATION: CONCLUSION: Lexiscan stress test was performed under standard four minute protocol. Radionuclid e was injected one minute prior to ending the test. Non-diagnostic electrocardiographic abormalities were present. Nuclear imaging and interpretation are pending. COMMENTS:
== END 2017-05-07 15:27 | disposition home or self-care (01) ==
LOC: NEPC 11:54 → NEDA 15:28 → NEPHCDU 17:30
PROVIDERS: ADMIT Internal Medicine Cardiovascular Disease; ATTEND Internal Medicine Cardiovascular Disease
DX: R07.89 Other chest pain (principal); I10 Essential (primary) hypertension; J44.9 Chronic obstructive pulmonary disease, unspecified; E03.9 Hypothyroidism, unspecified; M25.562 Pain in left knee; I25.119 Atherosclerotic heart disease of native coronary artery with unspecified angina pectoris; I25.2 Old myocardial infarction; I11.0 Hypertensive heart disease with heart failure; I50.9 Heart failure, unspecified; E78.5 Hyperlipidemia, unspecified; R00.1 Bradycardia, unspecified; I49.9 Cardiac arrhythmia, unspecified; K21.9 Gastro-esophageal reflux disease without esophagitis; I69.354 Hemiplegia and hemiparesis following cerebral infarction affecting left non-dominant side; F41.9 Anxiety disorder, unspecified; F25.9 Schizoaffective disorder, unspecified; F32.9 Major depressive disorder, single episode, unspecified; M85.80 Other specified disorders of bone density and structure, unspecified site; F17.210 Nicotine dependence, cigarettes, uncomplicated; Z79.899 Other long term (current) drug therapy; W19.XXXA Unspecified fall, initial encounter
CPT/HCPCS: 71046; 73564; 78452; 80053; 82550; 82552; 83735; 84484; 85025; 85610; 85730; 93005; 93017; 96360; 99285; A9502; G0378; J2785; J7040